=== PATIENT | female | born 1980 | race Caucasian/White ===

== ENCOUNTER 2020-06-14 07:19 | Outpatient (REF) | payer OTHER, SELFPAY ==
[2020-06-14 11:28] LABS: Hematocrit 38.8 % (37-47); Hemoglobin 12.4 g/dl (12.0-16.0); Mean Corpuscular Hemoglobin 28.2 pg (27.0-33.0); Mean Corpuscular Volume 88.2 fL (80-98); Mean Platelet Volume 10.7 fL (9.4-12.3); Platelet Count 326 X10*3/uL (160-400); Red Cell Distribution Width 14.6 % (11.0-16.0)
[2020-06-14 11:31] LABS: Glucose Urine UA NEG (NEG); Leukocyte Esterase Urine NEG (NEG); Nitrite Urine NEG (NEG); Specific Gravity - Urine >= 1.030 (1.005-1.025); Urine Blood 3+ (NEG); Urine Ketones NEG (NEG); Urine Protein NEG (NEG-TRACE)
[2020-06-14 11:33] LABS: Color Urine YELLOW
[2020-06-14 11:34] LABS: Appearance Urine CLOUDY
[2020-06-14 11:45] LABS: Amorphous Sediment Urine 2+ /LPF; Bacteria Urine 2+ /LPF; Squamous Epithelial Cell Urine 2+ /LPF
[2020-06-14 11:48] LABS: Alanine Aminotransferase 16 U/L (0-31); Alkaline Phosphatase 113 U/L (39-117); Anion Gap 12 (12-20); Aspartate Amino Transferase 14 U/L (5-31); Bilirubin Total 0.6 mg/dL (0.0-1.0); Blood Urea Nitrogen 12 mg/dL (9-16); Calcium 8.5 mg/dL (8.4-10.2); Carbon Dioxide 25 mmol/L (22-29); Chloride 106 mmol/L (96-108); Cholesterol 191 mg/dL; Estimated Glomerular Filt Rate > 60; Glucose Fasting 93 mg/dL (60-99); HDL Cholesterol 45 mg/dL; LDL Cholesterol Calculated 126 mg/dl; Potassium 4.1 mmol/l (3.3-5.1); Sodium 139 mmol/L (135-145); Total Protein 6.9 g/dL (6.5-8.0); Triglycerides 104 mg/dL
[2020-06-14 12:13] LABS: Thyroid Stimulating Hormone 2.02 mIU/mL (0.32-4.0)
== END 2020-06-14 07:20 | disposition home or self-care (01) ==
LOC: HO.HMGCLDS 07:19
PROVIDERS: PCP Internal Medicine; Visit Provider Internal Medicine
DX: Z00.00 Encounter for general adult medical examination without abnormal findings (principal); E66.9 Obesity, unspecified; M79.7 Fibromyalgia; E78.5 Hyperlipidemia, unspecified
CPT/HCPCS: 36415; 80053; 80061; 81001; 84443; 85027

== ENCOUNTER 2021-09-02 09:21 | Outpatient (REF) | payer OTHER, SELFPAY | END 2021-09-02 09:22 | disposition home or self-care (01) | LOC: HO.HMGCLDS 09:21 | PROVIDERS: Visit Provider Internal Medicine | DX: Z20.822 Contact with and (suspected) exposure to COVID-19 (principal) | CPT/HCPCS: C9803; U0003; U0005 ==

== ENCOUNTER → 2023-08-14 10:01 | Outpatient (BNVA) | payer SELFPAY | PROVIDERS: PCP Family Medicine; Visit Provider Internal Medicine | DX: Z02.1 Encounter for pre-employment examination (principal) ==

== ENCOUNTER 2023-10-01 08:29 | Outpatient (AMB) | payer SELFPAY ==
--- NOTE | 2023-10-01 08:37 | MHC.PC.OV ---
Vital Signs 10/01/23 08:41 Height 5 ft Weight 204 lb 6 oz BMI 39.9 BP 122/78 Blood Pressure Location Lt brachial Position Sitting Pulse 78 Pulse Source Pulse Oximeter Pulse Oximetry (%) 100 Oxygen Delivery Method Room Air Intake Visit Reasons: Est. Care/Stomach issues Intake Note: Pt is here today for stomach issues and knee problems. Allergies Benadryl Allergy (Unknown, Verified 10/01/23 08:52) angioedema, facial swelling From BENADRYL Allergy (Unknown, Uncoded 10/01/23 08:52) ITCHING ON FACE hard water and soap Allergy (Unknown, Uncoded 10/01/23 08:52) rash Medication List - Last Reconciled 10/01/23 by ALICIA Vail ketorolac 30 mg IM Q6-8H PRN syringe with needle As directed Tobacco use date assessed: 10/01/23 Dental Screening Dental Screen Date: 10/01/23 Did you have a dental visit in the last 12 months?: No Did you have a dental problem in the last 6 months where you did not have access to dental care?: No Was dental information given to patient?: No HPI HPI Comments History of Present Illness Details Patient is a 43-year-old female in today to establish care. She has a longstanding medical history in regard to achalasia and a sigmoid esophagus, she sees [facility]. She has chronic history of migraine, she has an established neurologist. She has fibromyalgia for whom she sees Rheumatology. Patient has a complaint of crepitus and cracking in the bilateral knees, yellow and thick toenail on her right great toe, and seasonal allergies. Patient states she noticed the cracking/ crepitus in her knees for several years however the problem has gotten worse. She denies pain, denies trauma to the area. Patient states she notices it most when she is walking up the stairs. Patient states she has a longstanding thickened and yellow toenail on her right great toe. Will refer to Podiatry. Patient also states she has intense seasonal allergies and would like to see an slide developer, will refer. [facility] Medical History (Updated 10/01/23 @ 10:46 by ALICIA Vail) Annual physical exam Normal Pap smear Hypermobile joint syndrome of multiple sites Obese Hyperlipemia Fibromyalgia Lumbar degenerative disc disease Achalasia Carpal tunnel syndrome Migraine headache Surgical History (Updated 10/01/23 @ 09:00 by ALICIA Vail) Hx of cholecystectomy History of appendectomy Family History Father No problems noted. Mother No problems noted. Social History Housing: House Patient Tobacco Use Status: Never used Tobacco e-Cigarette/Vaping Use: Never Used service: No Current occupational status: employed Cognitive needs: No Hearing needs: No Vision needs: Yes Questionnaire PHQ-9 Over the last 2 weeks, how often have you been bothered by any of the following problems? 1. Little interest or pleasure in doing things: several days 2. Feeling down, depressed, or hopeless: several days 3. Trouble falling or staying asleep, or sleeping too much: not at all 4. Feeling tired or having little energy: not at all 5. Poor appetite or overeating: not at all 6. Feeling bad about yourself - or that you are a failure or have let yourself or your family down: not at all 7. Trouble concentrating on things, such as reading the newspaper or watching television: not at all 8. Moving or speaking so slowly that other people could have noticed. Or the opposite - being so fidgety or restless that you have been moving around a lot more than usual: not at all 9. Thoughts that you would be better off or of hurting yourself in some way: not at all Total score: 2 Depression Screening Interpretation: Negative Depression Screening Done: Yes 80574 - PHQ-9 Billing: Yes Source: Developed by Drs. Diallo Zuleta, Sandra Arana, Henry Narayan and colleagues, with an educational jose from [employer]. Thrive Questionnaire Date Thrive assessed: 10/01/23 I am a: Patient What is your living situation today?: I have a steady place to live Within the past 12 months, did the food you bought not last and you didn't have the money to get more?: Never true Within the past 12 months, did you worry whether your food would run out before you got money to buy more?: Never true Do you have trouble paying for medicines?: No Do you have trouble getting transportation to medical appointments?: No Do you have trouble paying your heating and electricity bill?: No Do you have trouble taking care of your child, family member or friend?: No Do you have trouble with day-to-day activities such as bathing, preparing meals, shopping, managing finances, etc.?: No Are you currently unemployed and looking for a job?: No Are you interested in more education?: No Please select the resources that you would like help with: None Currently or been in a relationship where the following occur: no concerns reported THRIVE Score: 0 AUDIT C Alcohol Use Questionnaire (AUDIT-C) 1. How often do you have a drink containing alcohol?: Never 3. How often do you have six or more drinks on one occasion?: Never Total Score: 0 Score Reviewed/Action Taken: Yes LEEANNA-7 AMB Questionnaire LEEANNA-7 Date LEEANNA - 7 assessed: 10/01/23 Feeling nervous, anxious, or on edge: 1 = Several days Not being able to stop or control worryin = Several days Worrying too much about different things: 1 = Several days Trouble relaxin = Not at all Being so restless that it is hard to sit still: 0 = Not at all Becoming easily annoyed or irritable: 0 = Not at all Feeling afraid as if something awful might happen: 0 = Not at all Total LEEANNA-7 score (0-4 normal; 5-9 mild; 10-14 moderate; 15-21 severe): 3 Source: Developed by Drs. Diallo Zuleta, Sandra Arana, Henry Narayan and colleagues, with an educational jose from [employer]. LEEANNA-7 Assessment Billing LEEANNA-7 Assessment Tool: LEEANNA-7 Assessment 94277 Review of Systems Const Details: Constitutional : No Weight loss, No Fever, No Chills, No Fatigue, No Malaise ENT/Mouth : No sore throat, No Rhinorrhea, No ear fullness. Eyes: No Eye Pain, No Swelling, No Redness Cardiovascular : No Chest Pain, No SOB, No Dyspnea on Exertion, No Orthopnea, No Edema, No Palpitations Respiratory : No Cough, No Sputum, No Wheezing Gastrointestinal : No Nausea, No Vomiting, No Diarrhea, No Constipation, Admits occasional abdominal Pain, Admits occasional heartburn. Genitourinary : No Dysuria, No Urinary Frequency, No Hematuria, Musculoskeletal : No joint pain, Admits cracking and crepitus of bilateral knees. Skin : No Skin Lesions, No rash Neuro : No Weakness, No Numbness, No Dizziness, No Headache Psych : No Anxiety/Panic, No Depression Heme/Lymph: No Bruising, No Bleeding,No Lymphadenopathy Endocrine : No Polyuria, No Polydipsia All other systems reviewed and are negative Physical exam (Primary Care) Vital Signs: Last Vital Signs Pulse 78 10/01/23 08:41 BP 122/78 10/01/23 08:41 Pulse Ox 100 10/01/23 08:41 Oxygen Delivery Method Room Air 10/01/23 08:41 Care Plan Goal for BP management: Vital signs reviewed and stable BMI result Body Mass Index 39.9 Tobacco/Smoking Status: Tobacco use Status Tobacco use date assessed 10/01/23 10/01/23 08:43 Patient Tobacco Use Status Never used Tobacco 10/01/23 08:43 e-Cigarette/Vaping Use Never Used 10/01/23 08:43 Depression Screening Interpretation: Negative Currently or been in a relationship where the following occur: no concerns reported Const General: cooperative Nutritional Appearance: overweight Orientation/consciousness: patient oriented x3 Limitations: no limitations HENMT Head: Yes normal to inspection and Yes normocephalic Resp Auscultation: clear to auscultation bilaterally Cardio Rate: regular rate Rhythm: regular rhythm Heart sounds: S1 normal heart sound present and S2 normal heart sound present Peripheral pulses: Peripheral pulses 2+ throughout Neuro General: patient oriented x3 Extrem General: Yes normal to inspection and Yes full ROM Right lower extremity: knee (cracking/crepitus) Details: normal ROM; no deformity Left lower extremity: knee Details: normal ROM and crepitus Location: at the knee; no deformity Psych Thought content: Normal thought content present Insight: Good insight present (Psych) Judgement: Good judgement present (Psych) Assessment and Plan Assessment & Plan (1) Crepitus of both knee joints: Comment: Will order x-ray of bilateral knees. Will refer for to orthopedics. Code(s): M23.8X1 - Other internal derangements of right knee; M23.8X2 - Other internal derangements of left knee (2) Seasonal allergies: Comment: Patient would like referral to slide developer for assessment. Code(s): J30.2 - Other seasonal allergic rhinitis (3) Onychomycosis: Comment: Patient will get referral to Podiatry. Code(s): B35.1 - Tinea unguium Plan Follow-up for physical in 3 months Orders: Orders Comprehensive Met. Panel Today Z91.89 - Other specified personal risk factors, not elsewhere classified Complete Blood Count Auto Diff Today Z13.220 - Encounter for screening for lipoid disorders Lipid Panel Today Z13.220 - Encounter for screening for lipoid disorders Vitamin B6 Today Z13.21 - Encounter for screening for nutritional disorder Vitamin B12 Today Z13.21 - Encounter for screening for nutritional disorder XR knee RT 2V Today M23.8X1 - Other internal derangements of right knee, M23.8X2 - Other internal derangements of left knee Vitamin D 25-OH (D2 and D3) Today Z13.21 - Encounter for screening for nutritional disorder UA CC w/rflx Micro + Cult Today Z91.89 - Other specified personal risk factors, not elsewhere classified TSH reflex Free T4 Today Z13.29 - Encounter for screening for other suspected endocrine disorder XR knee LT 2V Today M23.8X1 - Other internal derangements of right knee, M23.8X2 - Other internal derangements of left knee Coding Level of Care Code Est Pt Level 3 (93292) Diagnoses Crepitus of both knee joints M23.8X1; M23.8X2 Seasonal allergies J30.2 Onychomycosis B35.1 Additional Codes LEEANNA-7 Assessment Billing - LEEANNA-7 Assessment Tool: LEEANNA-7 Assessment [id number] ([id number])
[2023-10-01 08:41] VITALS: BP 122/78; PULSE 78; O2SAT 100; BMI 39.9
== END 2023-10-01 11:02 | disposition home or self-care (01) ==
PROVIDERS: PCP Family Medicine; Visit Provider Nurse Practitioner Primary Care
DX: M23.8X1 Other internal derangements of right knee (principal); M23.8X2 Other internal derangements of left knee; J30.2 Other seasonal allergic rhinitis; B35.1 Tinea unguium
CPT/HCPCS: 99213

== ENCOUNTER 2023-10-01 10:13 | Outpatient (REF) | payer SELFPAY ==
--- NOTE | ~2023-10-01 | XR_ITS ---
EXAMINATION: XR KNEE, RIGHT CLINICAL INFORMATION: Internal derangement. COMPARISON: None available. TECHNIQUE: AP and lateral views of the right knee. FINDINGS: Bony alignment and mineralization are normal. The lateral, medial and patellofemoral joint space compartments are well-maintained. There is slight peripheral osteophyte formation of the lateral joint space compartment. No fracture, dislocation or joint effusion is seen. There is no foreign body. XR/XR knee RT 2V IMPRESSION: 1. No right knee fracture, dislocation joint effusion is seen. 2. There is minimal osteoarthritic change of the lateral joint space compartment of the right knee. EXAMINATION: XR KNEE, LEFT CLINICAL INFORMATION: Internal derangement. COMPARISON: None available. TECHNIQUE: Four views of the left knee. FINDINGS: Bony alignment and mineralization are normal. The lateral, medial and patellofemoral joint space compartments are well-maintained. There is slight peripheral osteophyte formation of the lateral joint space compartment. No fracture, dislocation or joint effusion is seen. There is no foreign body. IMPRESSION: 1. No left knee fracture, dislocation joint effusion is seen. 2. There is minimal osteoarthritic change of the lateral joint space compartment of the left knee.
--- NOTE | ~2023-10-01 | XR_ITS ---
EXAMINATION: XR KNEE, RIGHT CLINICAL INFORMATION: Internal derangement. COMPARISON: None available. TECHNIQUE: AP and lateral views of the right knee. FINDINGS: Bony alignment and mineralization are normal. The lateral, medial and patellofemoral joint space compartments are well-maintained. There is slight peripheral osteophyte formation of the lateral joint space compartment. No fracture, dislocation or joint effusion is seen. There is no foreign body. XR/XR knee LT 2V IMPRESSION: 1. No right knee fracture, dislocation joint effusion is seen. 2. There is minimal osteoarthritic change of the lateral joint space compartment of the right knee. EXAMINATION: XR KNEE, LEFT CLINICAL INFORMATION: Internal derangement. COMPARISON: None available. TECHNIQUE: Four views of the left knee. FINDINGS: Bony alignment and mineralization are normal. The lateral, medial and patellofemoral joint space compartments are well-maintained. There is slight peripheral osteophyte formation of the lateral joint space compartment. No fracture, dislocation or joint effusion is seen. There is no foreign body. IMPRESSION: 1. No left knee fracture, dislocation joint effusion is seen. 2. There is minimal osteoarthritic change of the lateral joint space compartment of the left knee.
[2023-10-01 13:12] LABS: MANUAL DIFF FLAG NO
[2023-10-01 13:23] LABS: Basophils Absolute Auto 0.1 X10*3/uL (0.0-0.2); Basophils Percent Auto 0.7 % (0-2); Eosinophils Absolute Auto 0.2 X10*3/uL (0.0-0.4); Eosinophils Percent Auto 2.4 % (0-4); Hematocrit 37.8 % (37.0-47.0); Hemoglobin 11.9 g/dl (12.0-16.0); Imm Gran Abs Auto 0.04 X10*3/uL (0.00-0.03); Imm Gran Pct Auto 0.4 % (0.0-0.4); Lymphocytes Percent Auto 30.8 % (20-40); Mean Corpuscular HGB Conc 31.5 g/dl (31.0-35.0); Mean Corpuscular Volume 82.7 fL (80.0-98.0); Mean Platelet Volume 10.2 fL (9.4-12.3); Monocytes Absolute Auto 0.7 X10*3/uL (0.1-1.2); Monocytes Percent Auto 7.2 % (2-11); Neutrophils Absolute Auto 5.6 x10*3/uL (2.0-8.3); Neutrophils Percent Auto 58.5 % (45-73); Platelet Count 408 X10*3/uL (160-400); Red Blood Count 4.57 X10*6/uL (4.20-5.50); Red Cell Distribution Width 16.4 % (11.0-16.0); White Blood Count 9.6 X10*3/uL (4.8-10.8)
[2023-10-01 13:40] LABS: Appearance Urine Turbid; Color Urine Yellow; Glucose Urine UA Negative (Negative); Leukocyte Esterase Urine Negative (Negative); Nitrite Urine Positive (Negative); Specific Gravity - Urine 1.025 (1.005-1.025); UMIC TRIGGER UACC YES; Urine Blood Moderate (2+) (Negative); Urine Ketones Negative (Negative); Urine Protein Negative (Neg-Trace)
[2023-10-01 13:50] LABS: Alanine Aminotransferase 13 U/L (0-31); Alkaline Phosphatase 111 U/L (39-117); Anion Gap 10 (12-20); Aspartate Amino Transferase 16 U/L (5-31); Bilirubin Total 0.4 mg/dL (0.0-1.0); Blood Urea Nitrogen 13 mg/dL (9-16); Calcium 9.2 mg/dL (8.4-10.2); Carbon Dioxide 28 mmol/L (22-29); Chloride 105 mmol/L (96-108); Cholesterol 185 mg/dL (<200); Estimated Glomerular Filt Rate > 60; Glucose Random 86 mg/dL (60-115); HDL Cholesterol 47 mg/dL (>40); LDL Cholesterol Calculated 116 mg/dL (<100); Potassium 3.6 mmol/L (3.3-5.1); Sodium 139 mmol/L (135-145); Total Protein 7.6 g/dL (6.5-8.0); Triglycerides 112 mg/dL (<150)
[2023-10-01 13:56] LABS: TSH reflex Free T4 1.07 uIU/mL (0.32-4.0)
[2023-10-01 14:00] LABS: Vitamin B12 278 pg/mL (200-900)
[2023-10-01 14:52] LABS: Bacteria Urine 1+ (None Seen); Hyaline Casts Urine 0-2 /LPF (0-2); RBC Urine 0-2 /HPF (0-2); Squamous Epithelial Cell Urine 0-2 /HPF (0-2); UACC Culture Trigger YES; WBC Urine 0-5 /HPF (0-5)
[2023-10-05 17:12] LABS: Vitamin D 25-OH, D2 <4 ng/mL; Vitamin D 25-OH, D3 14 ng/mL; Vitamin D 25-OH, Total 14 ng/mL (30-100)
== END 2023-10-01 10:14 | disposition home or self-care (01) ==
LOC: HO.HMGCX 10:13
PROVIDERS: PCP Nurse Practitioner Primary Care; Visit Provider Nurse Practitioner Primary Care
DX: Z13.220 Encounter for screening for lipoid disorders (principal); Z13.21 Encounter for screening for nutritional disorder; Z13.29 Encounter for screening for other suspected endocrine disorder; M23.8X1 Other internal derangements of right knee; M23.8X2 Other internal derangements of left knee; Z91.89 Other specified personal risk factors, not elsewhere classified; R82.90 Unspecified abnormal findings in urine
CPT/HCPCS: 36415; 73560; 80053; 80061; 81001; 82306; 82607; 84443; 85025; 87086; 87088; 87186

== ENCOUNTER 2023-10-02 09:42 | Outpatient (REF) | payer SELFPAY ==
[2023-10-06 16:08] LABS: Vitamin B6 5.2 ng/mL (2.1-21.7)
== END 2023-10-02 09:43 | disposition home or self-care (01) ==
LOC: HO.HMGCLDS 09:42
PROVIDERS: PCP Nurse Practitioner Primary Care; Visit Provider Nurse Practitioner Primary Care
DX: Z13.21 Encounter for screening for nutritional disorder (principal)
CPT/HCPCS: 36415; 84207

== ENCOUNTER 2023-11-16 17:20 | Outpatient (REF) | payer SELFPAY | END 2023-11-16 17:21 | disposition home or self-care (01) | LOC: HO.HOSX 17:20 | PROVIDERS: Visit Provider Physician Assistant | DX: Z13.89 Encounter for screening for other disorder (principal) ==

== ENCOUNTER 2024-12-15 09:29 | Outpatient (AMB) | payer OTHER, SELFPAY ==
[2024-12-15 09:39] VITALS: BP 116/78; PULSE 89; RESP 16; TEMP 37.4; O2SAT 99; BMI 46.8
--- NOTE | 2024-12-15 09:39 | MHC.PC.OV ---
Vital Signs 12/15/24 09:39 Height 5 ft Weight 239 lb 12.8 oz BMI 46.8 BP 116/78 Blood Pressure Location Lt brachial Position Sitting Respiration 16 Pulse 89 Pulse Source Pulse Oximeter Temp 99.3 F Temp Source Oral Pulse Oximetry (%) 99 Oxygen Delivery Method Room Air Intake Visit Reasons: establish care Intake Note: Patient is a new patient here to establish care. Transferring care from [facility] . Medical records have been requested and have been received. Educational Psychology Professor Required: No Accompanied by: Self / Same As Patient Allergies Benadryl Allergy (Unknown, Verified 12/15/24 10:00) angioedema, facial swelling From BENADRYL Allergy (Unknown, Uncoded 12/15/24 10:00) ITCHING ON FACE hard water and soap Allergy (Unknown, Uncoded 12/15/24 10:00) rash Medication List - Last Reconciled 12/15/24 by GAEL Frazier ketorolac 30 mg IM Q4-6H PRN syringe with needle As directed Tobacco use date assessed: 12/15/24 Dental Screening Dental Screen Date: 12/15/24 Did you have a dental visit in the last 12 months?: No Did you have a dental problem in the last 6 months where you did not have access to dental care?: No Was dental information given to patient?: Patient has dentist HPI establish care HPI Details The patient is a 44-year-old female here to transition care from our [place] office. She presenting with concerns related to her chronic conditions such as fibromyalgia and hypermobility syndrome. She reported an allergic reaction to diphenhydramine, characterized by exacerbation of skin symptoms when exposed to sunlight. The patient additionally has hyperthyroidism and elevated blood ammonia levels, which are managed with the assistance of a school plant consultant. Despite her high pain tolerance and hypermobility syndrome, the patient experiences chronic migraines associated with aura, necessitating self-administration of Toradol injections. Her past medical history is further marked by gastrointestinal conditions like esophageal atony and motility disorder, which have necessitated surgical interventions affecting her ribcage. The patient has a deficient esophageal function and 70% of her stomach is non-functioning, which affects her appetite post-surgery. While she has specialized follow-up for these issues, a comprehensive physical examination, mammogram, and colonoscopy are pending, as are specific gynecological screenings. [facility] Medical History (Updated 12/18/24 @ 11:06 by GAEL Frazier) Annual physical exam Normal Pap smear Hypermobile joint syndrome of multiple sites Obese Hyperlipemia Fibromyalgia Lumbar degenerative disc disease Achalasia Carpal tunnel syndrome Migraine headache Surgical History Hx of cosmetic surgery History of tonsillectomy and adenoidectomy Hx of section Hx of cholecystectomy History of appendectomy Family History Father No problems noted. Mother No problems noted. Daughter Short-term memory loss Learning disability Son Premature Son Learning disability Autism Social History Household Members: Family Housing: House Alcohol intake: never Patient Tobacco Use Status: Never used Tobacco e-Cigarette/Vaping Use: Never Used service: No Current occupational status: employed Cognitive needs: No Hearing needs: No Vision needs: Yes (Glasses) Questionnaire PHQ-9 Over the last 2 weeks, how often have you been bothered by any of the following problems? 1. Little interest or pleasure in doing things: not at all 2. Feeling down, depressed, or hopeless: not at all 3. Trouble falling or staying asleep, or sleeping too much: not at all 4. Feeling tired or having little energy: not at all 5. Poor appetite or overeating: not at all 6. Feeling bad about yourself - or that you are a failure or have let yourself or your family down: not at all 7. Trouble concentrating on things, such as reading the newspaper or watching television: not at all 8. Moving or speaking so slowly that other people could have noticed. Or the opposite - being so fidgety or restless that you have been moving around a lot more than usual: not at all 9. Thoughts that you would be better off or of hurting yourself in some way: not at all Total score: 0 Depression Screening Interpretation: Negative Depression Screening Done: Yes 51716 - PHQ-9 Billing: Yes Source: Developed by Drs. Diallo Zuleta, SandraHenry Olivia and colleagues, with an educational jose from [employer]. Thrive Questionnaire Date Thrive assessed: 12/15/24 I am a: Patient What is your living situation today?: I have a steady place to live Within the past 12 months, did the food you bought not last and you didn't have the money to get more?: Often true Within the past 12 months, did you worry whether your food would run out before you got money to buy more?: Never true Do you have trouble paying for medicines?: No Do you have trouble getting transportation to medical appointments?: No Do you have trouble paying your heating and electricity bill?: No Do you have trouble taking care of your child, family member or friend?: No Do you have trouble with day-to-day activities such as bathing, preparing meals, shopping, managing finances, etc.?: No Are you currently unemployed and looking for a job?: No Are you interested in more education?: No Please select the resources that you would like help with: None Currently or been in a relationship where the following occur: No concerns reported THRIVE Score: 1 AUDIT C Alcohol Use Questionnaire (AUDIT-C) 1. How often do you have a drink containing alcohol?: Never 3. How often do you have six or more drinks on one occasion?: Never Total Score: 0 Score Reviewed/Action Taken: No LEEANNA-7 AMB Questionnaire LEEANNA-7 Date LEEANNA - 7 assessed: 12/15/24 Feeling nervous, anxious, or on edge: 0 = Not at all Not being able to stop or control worryin = Not at all Worrying too much about different things: 0 = Not at all Trouble relaxin = Not at all Being so restless that it is hard to sit still: 0 = Not at all Becoming easily annoyed or irritable: 0 = Not at all Feeling afraid as if something awful might happen: 0 = Not at all Total LEEANNA-7 score (0-4 normal; 5-9 mild; 10-14 moderate; 15-21 severe): 0 Source: Developed by Drs. Diallo Zuleta, Henry Sanders and colleagues, with an educational jose from [employer]. LEEANNA-7 Assessment Billing LEEANNA-7 Assessment Tool: LEEANNA-7 Assessment 72963 Review of Systems Const Reports headache(s) (Migraines with aura) Eyes Denies loss of vision ENT Reports dysphagia (with solid foods), Denies vertigo, Denies dizziness, Reports headache(s) (Migraines with aura) and Denies sore throat Card Denies chest pain, Denies leg edema and Denies lightheadedness Resp Denies cough, Denies hemoptysis and Denies wheezing GI Denies abdominal pain, Denies melena, Denies constipation, Reports dysphagia (with solid foods), Reports heartburn (On and off depending on meals), Denies diarrhea and Denies vomiting Denies urinary frequency, Denies dysuria and Denies urinary urgency Musc Denies arthralgias, Denies joint swelling, Denies numbness, Reports stiffness (Both knees, on and off crepitus) and Denies tingling Neuro Denies Abnormal speech present, Denies behavioral changes, Denies vertigo, Denies dizziness, Reports headache(s) (Migraines with aura), Denies loss of vision, Denies memory loss, Denies numbness and Denies tingling Psych Denies anxiety, Denies behavioral changes, Denies depression, Denies memory loss and Denies panic attacks Ced/Lymph Denies easy bleeding and Denies easy bruising Aller/Immun Denies wheezing Physical exam (Primary Care) Vital Signs: Last Vital Signs Temp 99.3 F 12/15/24 09:39 Pulse 89 12/15/24 09:39 Resp 16 12/15/24 09:39 BP 116/78 12/15/24 09:39 Pulse Ox 99 12/15/24 09:39 Oxygen Delivery Method Room Air 12/15/24 09:39 BMI result Body Mass Index 46.8 Tobacco/Smoking Status: Tobacco use Status Tobacco use date assessed 12/15/24 12/15/24 09:59 Patient Tobacco Use Status Never used Tobacco 12/15/24 09:56 e-Cigarette/Vaping Use Never Used 12/15/24 09:56 PHQ-9: PHQ-9 Score PHQ-9: Total score 0 12/15/24 10:05 Depression Screening Interpretation: Negative Thrive Assessment: Date of Thrive Assessment Date Thrive assessed 12/15/24 12/15/24 09:59 Currently or been in a relationship where the following occur: No concerns reported Const General: healthy appearing, no acute distress, alert and awake Nutritional Appearance: well nourished Orientation/consciousness: oriented to person, oriented to place and oriented to time HENMT Ears: external ears normal General nose exam: Normal external nose present Eyes Conjunctivae: conjunctivae normal Sclerae: sclerae normal Pupils: Equal, round and reactive pupils present Neck Neck: Yes no lymphadenopathy and Yes no JVD Thyroid: Thyroid normal Carotids: no bruits Resp Effort & Inspection: normal respiratory effort and not tachypneic Auscultation: no crackles, no rales, no rhonchi and no wheezes Cardio Rate: regular rate Rhythm: regular rhythm Heart sounds: no murmurs and normal S1 and S2 GI Inspection: Yes scar Palpation (GI): Soft to palpation, nontender, no hepatomegaly and no splenomegaly Auscultation: normal bowel sounds General: Yes no CVA tenderness Back/Spine/Pelvis Back: no CVA tenderness Skin General skin exam: no rashes or lesions noted and dry skin Neuro General: oriented to person, oriented to place and oriented to time Cranial nerves: Yes Equal, round and reactive pupils present Speech: No Abnormal speech present Gait exam (Neuro): Normal gait present Motor exam (neuro): no tremor noted Extrem Right upper extremity: full ROM Left upper extremity: full ROM Right lower extremity: full ROM; no edema Left lower extremity: full ROM; no edema Psych Mental Status: mental status grossly normal Speech and movement: Normal speech and movement present Affect: normal affect Attitude: cooperative Thought process: Normal thought process present Coding Level of Care Code Est Pt Level 4 (92340) Diagnoses Encounter for screening mammogram for malignant neoplasm of breast Z12.31 Encounter for annual routine gynecological examination Z01.419 Achalasia K22.0 Fibromyalgia M79.7 Migraine with status migrainosus, not intractable, unspecified migraine type G43.901 Migraine type: unspecified Status migrainosus presence: with status migrainosus Intractability: not intractable Hypermobile joint syndrome of multiple sites M24.80 Additional Codes LEEANNA-7 Assessment Billing - LEEANNA-7 Assessment Tool: LEEANNA-7 Assessment 08427 ([id number]) PHQ-9 - 73988 - PHQ-9 Billing: Yes ([id number]) Time Spent (min) 43 Assessment & Plan Assessment & Plan (1) Encounter for screening mammogram for malignant neoplasm of breast: Code(s): Z12.31 - Encounter for screening mammogram for malignant neoplasm of breast Category: Medical (2) Encounter for annual routine gynecological examination: Code(s): Z01.419 - Encounter for gynecological examination (general) (routine) without abnormal findings Category: Medical (3) Achalasia: Comment: f/u Code(s): K22.0 - Achalasia of cardia Category: Medical (4) Fibromyalgia: Comment: f/u rheumatology [facility] Code(s): M79.7 - Fibromyalgia Category: Medical (5) Migraine headache: Comment: f/u Dr. Naik Code(s): G43.909 - Migraine, unspecified, not intractable, without status migrainosus Category: Medical Qualifiers: Migraine type: unspecified Status migrainosus presence: with status migrainosus Intractability: not intractable Qualified Code(s): G43.901 - Migraine, unspecified, not intractable, with status migrainosus (6) Hypermobile joint syndrome of multiple sites: Code(s): M24.80 - Other specific joint derangements of unspecified joint, not elsewhere classified Category: Medical Plan We discussed management of the patient's fibromyalgia and hypermobility syndrome, emphasizing intervention through self-administered Toradol injections. The patient was counselled to avoid sun exposure to prevent aggravation of photosensitivity. Her history of allergic reaction to diphenhydramine requires vigilance against similar compounds. Gastrointestinal conditions demand continuous follow-up with specialists, given significant gastrointestinal motility involvement, and potential surgical interventions that might be needed in [place]. Previous surgical sites and their impacts are noted, with planned reassessment later this year. The patient was advised regarding the significance of recommended medical screenings like mammograms and colonoscopies, especially considering her age and new guidelines for early detection. Vaccinations are updated except for influenza, with only one dose of Moderna COVID-19 recorded. Further gynecological evaluations, including Pap smears and mammography, were planned, for which we will provide appropriate referrals. Patient was informed and verbally consented to the use of an ambient scribe for clinic note documentation during this visit. Orders: Orders Complete Blood Count Auto Diff 12/17/24 G43.909 - Migraine, unspecified, not intractable, without status migrainosus, J30.2 - Other seasonal allergic rhinitis, M79.7 - Fibromyalgia, Z00.00 - Encounter for general adult medical examination without abnormal findings Comprehensive [place]. Panel Fast 12/17/24 G43.909 - Migraine, unspecified, not intractable, without status migrainosus, J30.2 - Other seasonal allergic rhinitis, M79.7 - Fibromyalgia, Z00.00 - Encounter for general adult medical examination without abnormal findings Vitamin D 25-OH Total 12/17/24 G43.909 - Migraine, unspecified, not intractable, without status migrainosus, J30.2 - Other seasonal allergic rhinitis, M79.7 - Fibromyalgia, Z00.00 - Encounter for general adult medical examination without abnormal findings TSH reflex Free T4 12/17/24 G43.909 - Migraine, unspecified, not intractable, without status migrainosus, J30.2 - Other seasonal allergic rhinitis, M79.7 - Fibromyalgia, Z00.00 - Encounter for general adult medical examination without abnormal findings Glucose Fasting 12/17/24 G43.909 - Migraine, unspecified, not intractable, without status migrainosus, J30.2 - Other seasonal allergic rhinitis, M79.7 - Fibromyalgia, Z00.00 - Encounter for general adult medical examination without abnormal findings UA CC w/rflx Micro + Cult 12/17/24 G43.909 - Migraine, unspecified, not intractable, without status migrainosus, J30.2 - Other seasonal allergic rhinitis, M79.7 - Fibromyalgia, Z00.00 - Encounter for general adult medical examination without abnormal findings Lipid Panel 12/17/24 G43.909 - Migraine, unspecified, not intractable, without status migrainosus, J30.2 - Other seasonal allergic rhinitis, M79.7 - Fibromyalgia, Z00.00 - Encounter for general adult medical examination without abnormal findings MM tomosynthesis screening BI Today Z12.31 - Encounter for screening mammogram for malignant neoplasm of breast Referrals DRAWING KILN OPERATOR Referral Z01.419 - Encounter for gynecological examination (general) (routine) without abnormal findings Patient Instructions: - Avoid sun exposure during peak hours to limit photosensitivity reactions. - Maintain regular follow-ups with specialists for comprehensive management of all chronic conditions. - Schedule a mammogram and Pap smear; follow referrals provided. - Attend gastroenterology follow-ups to monitor motility disorder and potential surgical needs. - Monitor any changes in symptoms and seek immediate care if conditions worsen. - Avoid known allergens, such as diphenhydramine, to prevent adverse reactions.
--- OUTSIDE RECORDS SUMMARY | 2024-12-15 10:50 | XMS_ITS ---
Author Organization [facility] Address [address] [place] [phone] Care Team Providers Care Applications Support Lead Name Role Phone Diallo Chavez Primary Care Provider REASON FOR VISIT Patient presents today for an office visit f/u for achalasia,IBS,GERD Encounters Encounter Location Date Provider Diagnosis [facility] [address] [place] [phone] 01/07/2024 Diallo Chavez Plan Of Treatment No Information Progress Notes * PERNELL SERRANOGOJPINEDOB: 1980 (44 yo F)Acc No.[id number]:01/07/2024 Progress Notes Patient:?PERNELL SERRANOGOROSEANNA Provider:?Diallo Chavez MD :1980???Age:43 Y???Sex:Female D ate:01/07/2024 Address:[address] [place], [place] [id number] Subjective: * Chief Complaints: * ???1. Patient presents today for an office visit f/u for achalasia,IBS,GERD. * Medical History:? Objective: * Vitals:? Assessment: Plan: * Treatment: * * The named appointment provid er may or may not be the originator of this progress note, and it is not deemed complete until electronically signed by the appointment provider. Sign off status: Pending * Provider:?Diallo Chavez MD Date:? 024 Generated for Sree sheridan/Olga/eTransmitting on:?12/15/2024 10:50 AM EDT
--- OUTSIDE RECORDS SUMMARY | 2024-12-15 10:51 | XMS_ITS ---
Author Organization [facility] Address [address] [place] [phone] Care Team Providers Care Color Repairer Name Role Phone Diallo Chavez Primary Care Provider REASON FOR VISIT omeprazole refill Medications Medication SIG (Take, Route, Fr equency, Duration) Notes Start Date End Date Status Omeprazole 20 MG 1 Orally Every morni ng for 30 day(s) 09/08/2023 Active Encounters Encounter Location Date Provider Diagnosis [facility] [address] [place] [phone] 09/08/2023 Diallo Chavez Plan Of Treatment Medication Medication Name Sig Start Date Stop Date Notes Omeprazole 20 MG 1 Orally Every morning for 30 day(s) 05/2024 Progress Notes * JP LARRYINEDOB: 1980 (43 yo F)Acc No.[id number]:09/08/2023 Patient:?ROSEANNA LARRY :1980???Age:43 Y???Sex:Female Address:[address] [place] [id number] * Refills? Start Omeprazole Capsule Delayed Release, 20 MG, Orally, 30, 1, Every morning, 30 day(s), Refills=11 * true * Date:? Generated for Sree sheridan/Olga/eTransmitting on:?12/15/2024 10:50 AM EDT
--- OUTSIDE RECORDS SUMMARY | 2024-12-15 10:51 | XMS_ITS | Patient Health Record ---
Author Organization [facility] Address [address] [place] [phone] Care Team Providers Care Skin Installer Name Role Phone Diallo Chavez Primary Care Provider Allergies Allergen (clinical drug ingredient) Drug/Non Drug Allergy documented on EMR Reaction Allergy Type Onset Date Status diphenhydramine benadryl (uncoded) Unknown Allergy Active Reason For Referral No Information Medications Medication SIG (Take, Route, Frequency, Duration) Notes Start Date End Date Status Promethazine HCl Act juventino Hyoscyamine Sulfate 0.125 MG 1-2 Sublingual every 4 hours as needed for abdominal pain/cramps for 30 days IBS 04/10/2016 Active Omeprazole 20 MG Open 1 capsule and put in applesauce Orally Once a day for 30 day(s) 12/06/2020 Active Omeprazole 2 MG/ML 10 ml Orally Once a day for 30 day(s) 11/27/2020 Not-Taking Naratriptan HCl Migraines Acti ve Ketorolac Tromethamine 30 MG/ML (IM) as directed Intramuscular PRN pain Fibromyalgia Active Omeprazole 20 MG 1 Orally Every morning for 30 day(s) 09/08/2023 Active Imodium A-D 2 MG 1 or 2 tablets Orall y Take before each meal three times a day to prevent abdominal cramps and diarrhea for 30 days 04/30/2022 Active Prevacid SoluTab 30 MG 1 tablet dissolved in mouth Orally Once a day for 30 day(s) 12/04/2020 Not-Taking Hyoscyamine Sulfate 0.125 MG 1 or 2 tablet on the tongue and allow to dissolve Orally Before every meal three times a day to prevent abdominal cramps and diarrhea for 30 days 04/30/2022 Active Immunizations Vaccine Route Administration Date Status Comme nts Influenza Unknown 04/30/2022 Administered Influenza Unknown 05/30/2020 Refused Problems Problem Type SNOMED Code ICD Code Onset Dates Problem Status W/U Status Risk Notes Problem [id number] Abdominal bloating (R14.0) Active confirmed Problem 055744198 Generalized abdominal pain (R10.84) Active confirmed Problem Dysphagia (91991043) Dysphagia (R13.10) Active confirmed Problem Irritable bowel syndrome (52764358) IBS (irritable bowel syndrome) (K58.9) Active confirmed Problem 20603431 Achalasia (K22.0) Active confirmed Problem Gastroesophageal reflux disease (985994656) GERD (gastroesophag eal reflux disease) (K21.9) Active confirmed Encounters Encounter Location Date Provider Diagnosis [facility] [address] [place] [address] 01/07/2024 Diallo Chavez Plan Of Treatment No Information Medical (General) History Medical History History ICD Code Achalasia treated with a loli gical Heller myotomy in [place] in 2003--last EGD was in 08/2010-no retained food nor obstruction--saw Dr. Rekha Martinez from Thoracic surgery in 2010-did not feel that surgery was needed at that time--saw Dr. Katz at [facility] in 03/2014-had a Barium swallow and esophageal motility study--no surgery recommended. She did followup with Dr. Katz and Dr. Lambert at [facility] in 2014 but did not have any surgery nor POEM procedure done. We are trying to get her an appointment to see Dr. Qiu at [facility] for spring. She did see Dr. Qiu in 11/2015--had a Barium swallow and CT scan--he needs to do an EGD and then decide about any possible treatment for the Achalasia. She has been followed by Dr. Qiu, Dr. Mccray(Lapaoscopic surgeon) and Dr. Kent(Bariatric surgeon) at [facility]--going back there in 07/2017 for F/U and to try to set up a POEM procedure. She reports an attempted EGD with POEM by Dr. Mccray in spring---they were unable to do the POEM due to difficulty with the esophageal anatomy. Dr. Mccray has recommended an esophagectomy at some point. After 2018 no other intervention due to problems with her insurance. She has been seeing Dr. Blevins at [facility] since 2019 Headaches Denies NM,DM,CVA,Lung disease,renal dise ase Vitamin D deficiency Fibromyalgia/Hypermobility of the bones Regarding her achalasia, she has most recently been followed by Dr. Blevins at [facility] since May of 2020--she has undergone an upper endoscopy with a 20 mm Savory dilation by Dr. Blevins, as well as a barium swallow--- the main issue with José Antonios swallowing seems to be related to the poorly functioning and tortuous lower esophagus, as opposed to the lower esophageal sphincter--Dr. Blevins seems to think that the only real helpful surgery here could be potential esophagectomy with what I presume would be either a gastric pull-through anastomosis or colonic interposition. However, either way Sherie is felt to be a prohibitive operative risk due to her significant morbid obesity and the plan is to proceed conservatively at this time based on Dr. Blevins's office notes IBS Surgical History Surgery Date(Month/Year) Heller myotomy as above--2004 in [place] [facility] in 10/[address] Barnes Appendectomy 02/05/2015--Dr. Aguilar at [facility]
== END 2024-12-15 10:25 | disposition home or self-care (01) ==
DX: Z12.31 Encounter for screening mammogram for malignant neoplasm of breast (principal); Z01.419 Encounter for gynecological examination (general) (routine) without abnormal findings; K22.0 Achalasia of cardia; M79.7 Fibromyalgia; G43.901 Migraine, unspecified, not intractable, with status migrainosus; M24.80 Other specific joint derangements of unspecified joint, not elsewhere classified

== ENCOUNTER → 2024-12-15 09:29 | Outpatient (BNVA) | payer OTHER, SELFPAY | DX: K22.0 Achalasia of cardia (principal); M79.7 Fibromyalgia; G43.901 Migraine, unspecified, not intractable, with status migrainosus; M24.80 Other specific joint derangements of unspecified joint, not elsewhere classified | CPT/HCPCS: 96127; 99212 ==

== ENCOUNTER 2024-12-17 08:13 | Outpatient (REF) | payer OTHER, SELFPAY ==
--- OUTSIDE RECORDS SUMMARY | 2024-12-17 08:16 | XMS_ITS ---
Author Organization [facility] Address [address] [place] [phone] Care Team Providers Care Step Down Specialist Name Role Phone Diallo Chavez Primary Care Provider REASON FOR VISIT Pt no show Encounters Encounter Location Date Provider Diagnosis [facility] [address] [place] [phone] 01/07/2024 Diallo Chavez Plan Of Treatment No Information Progress Notes * JP LARRYINEDOB: 1980 (43 yo F)Acc No.[id number]:01/07/2024 Patient:?ROSEANNA LARRY :1980???Age:43 Y???Sex:Female Address:[address] [place] [phone] * true * Date:? Generated for Megani fatimah/Olga/eTransmitting on:?12/17/2024 08:16 AM EDT
--- OUTSIDE RECORDS SUMMARY | 2024-12-17 08:16 | XMS_ITS ---
Author Organization [facility] Address [address] [place] [phone] Care Team Providers Care Mushroom Laborer Name Role Phone Diallo Chavez Primary Care Provider [phone] REASON FOR VISIT omeprazole refill Medications Medication SIG (Take, Route, Fr equency, Duration) Notes Start Date End Date Status Omeprazole 20 MG 1 Orally Every morni ng for 30 day(s) 09/08/2023 Active Encounters Encounter Location Date Provider Diagnosis [facility] [address] [place] [phone] 09/08/2023 Diallo Chavez Plan Of Treatment Medication Medication Name Sig Start Date Stop Date Notes Omeprazole 20 MG 1 Orally Every morning for 30 day(s) 05/2024 Progress Notes * JP LARRYINEDOB: 1980 (43 yo F)Acc No.[id number]:09/08/2023 Patient:?ROSEANNA LARRY :1980???Age:43 Y???Sex:Female Address:[address] [place] [address] * Refills? Start Omeprazole Capsule Delayed Release, 20 MG, Orally, 30, 1, Every morning, 30 day(s), Refills=11 * true * Date:? Generated for Sree sheridan/Olga/eTransmitting on:?12/17/2024 08:16 AM EDT
--- OUTSIDE RECORDS SUMMARY | 2024-12-17 08:16 | XMS_ITS ---
Author Organization [facility] Address [address] [place] [phone] Care Team Providers Care Grounds Caretaker Name Role Phone Diallo Chavez Primary Care Provider [phone] REASON FOR VISIT Patient presents today for an office visit f/u for achalasia,IBS,GERD Encounters Encounter Location Date Provider Diagnosis [facility] [address] [place] [phone] 01/07/2024 Diallo Chavez Plan Of Treatment No Information Progress Notes * PERNELL SERRANOGOJPINEDOB: 1980 (44 yo F)Acc No.[id number]:01/07/2024 Progress Notes Patient:?PERNELL SERRANOGOROSEANNA Provider:?Diallo Chavez MD :1980???Age:43 Y???Sex:Female D ate:01/07/2024 Address:[address] [place], [place] [phone] Subjective: * Chief Complaints: * ???1. Patient [...] Provider:?Diallo Chavez MD Date:? 024 Generated for Megani fatimah/Olga/eTransmitting on:?12/17/2024 08:15 AM EDT
--- OUTSIDE RECORDS SUMMARY | 2024-12-17 08:17 | XMS_ITS | Patient Health Record ---
Author Organization [facility] Address [address] [place] [address] Care Team Providers Care Cae Engineer Name Role Phone Diallo Chavez Primary Care Provider [phone] Allergies Allergen (clinical drug ingredient) Drug/Non Drug [...] Problem Status W/U Status Risk Notes Problem 454952617 Abdominal bloating (R14.0) Active confirmed Problem 737580402 Generalized abdominal pain (R10.84) Active confirmed Problem Dysphagia (28091841) Dysphagia (R13.10) Active confirmed Problem Irritable bowel syndrome (59269863) IBS (irritable bowel syndrome) (K58.9) Active confirmed Problem 97418358 Achalasia (K22.0) Active confirmed Problem Gastroesophageal reflux disease (741321048) GERD (gastroesophag eal reflux disease) (K21.9) Active confirmed Encounters Encounter Location Date Provider Diagnosis [facility] [address] [place] [address] 01/07/2024 Diallo Chavez Plan Of Treatment No Information Medical (General) History Medical History History ICD Code Achalasia treated with a loli gical Heller myotomy in [place] in 2003--last EGD was in 08/2010-no retained food nor obstruction--saw Dr. Rekha Martinez from Thoracic surgery in 2010-did not feel that surgery was needed at that time--saw Dr. Katz at [facility] in 03/2014-had a Barium swallow and esophageal motility study--no surgery recommended. She did followup with Dr. Katz and Dr. Lambert at [facility] in 2014 but did not have any surgery nor POEM procedure done. We are trying to get her an appointment to see Dr. Qiu at [facility] for spring. She did see Dr. Qiu in 11/2015--had a Barium swallow and CT scan--he needs to do an EGD and then decide about any possible treatment for the Achalasia. She has been followed by Dr. Qiu, Dr. Mccray(Lapaoscopic surgeon) and Dr. Kent(Bariatric surgeon) at [facility]--going back there in 07/2017 for F/U and [...] She has been seeing Dr. Blevins at [facility] since 2019 Headaches Denies [place],DM,CVA,Lung disease,renal dise ase Vitamin D deficiency Fibromyalgia/Hypermobility of the bones Regarding her achalasia, she has most recently been followed by Dr. Blevins at [facility] Department since May of 2020--she [...] Surgery Date(Month/Year) Heller myotomy as above--2004 in [place] [facility] in 10/[address] Barnes Appendectomy 02/05/2015--Dr. Aguilar at [facility]
[2024-12-17 08:33] LABS: MANUAL DIFF FLAG NO
[2024-12-17 09:08] LABS: Basophils Absolute Auto 0.1 X10*3/uL (0.0-0.2); Basophils Percent Auto 0.9 % (0-2); Eosinophils Absolute Auto 0.4 X10*3/uL (0.0-0.4); Eosinophils Percent Auto 5.1 % (0-4); Hematocrit 35.7 % (37.0-47.0); Hemoglobin 10.7 g/dl (12.0-16.0); Imm Gran Abs Auto 0.04 X10*3/uL (0.00-0.03); Imm Gran Pct Auto 0.5 % (0.0-0.4); Lymphocytes Absolute Auto 2.6 X10*3/uL (1.2-4.9); Lymphocytes Percent Auto 31.6 % (20-40); Mean Corpuscular Hemoglobin 23.1 pg (27.0-33.0); Mean Corpuscular Volume 76.9 fL (80.0-98.0); Mean Platelet Volume 9.8 fL (9.4-12.3); Monocytes Absolute Auto 0.6 X10*3/uL (0.1-1.2); Monocytes Percent Auto 7.8 % (2-11); Neutrophils Absolute Auto 4.4 x10*3/uL (2.0-8.3); Neutrophils Percent Auto 54.1 % (45-73); Platelet Count 364 X10*3/uL (160-400); Red Blood Count 4.64 X10*6/uL (4.20-5.50); Red Cell Distribution Width 19.5 % (11.0-16.0); White Blood Count 8.1 X10*3/uL (4.8-10.8)
[2024-12-17 09:17] LABS: Appearance Urine Cloudy; Color Urine Yellow; Glucose Urine UA Negative (Negative); Leukocyte Esterase Urine Small (1+) (Negative); Nitrite Urine Positive (Negative); PH 5.5 (5.0-9.0); Specific Gravity - Urine 1.025 (1.005-1.025); UMIC TRIGGER UACC YES; Urine Blood Moderate (2+) (Negative); Urine Ketones Trace mg/dL (Negative); Urine Protein Negative (Neg-Trace)
[2024-12-17 09:30] LABS: Bacteria Urine 4+ (None Seen); Hyaline Casts Urine 0-2 /LPF (0-2); RBC Urine 0-2 /HPF (0-2); UACC Culture Trigger YES; WBC Urine 21-50 /HPF (0-5)
[2024-12-17 10:02] LABS: Alanine Aminotransferase 16 U/L (0-31); Albumin Level 3.9 g/dL (3.5-5.0); Alkaline Phosphatase 99 U/L (39-117); Aspartate Amino Transferase 21 U/L (5-31); Bilirubin Total 0.7 mg/dL (0.0-1.0); Blood Urea Nitrogen 13 mg/dL (9-16); Calcium 9.4 mg/dL (8.4-10.2); Cholesterol 186 mg/dL (<200); Estimated Glomerular Filt Rate > 60; Glucose Fasting 89 mg/dL (60-99); HDL Cholesterol 46 mg/dL (>40); LDL Cholesterol Calculated 117 mg/dL (<100); Total Protein 7.2 g/dL (6.5-8.0); Triglycerides 116 mg/dL (<150)
[2024-12-17 10:13] LABS: Anion Gap 15 (12-20); Carbon Dioxide 23 mmol/L (22-29); Chloride 107 mmol/L (96-108); Potassium 3.8 mmol/L (3.3-5.1); Sodium 141 mmol/L (135-145); TSH reflex Free T4 2.58 uIU/mL (0.32-4.0)
== END 2024-12-17 08:14 | disposition home or self-care (01) ==
LOC: HO.LAB 08:13
DX: Z00.00 Encounter for general adult medical examination without abnormal findings (principal); G43.909 Migraine, unspecified, not intractable, without status migrainosus; M79.7 Fibromyalgia; J30.2 Other seasonal allergic rhinitis
CPT/HCPCS: 36415; 80053; 80061; 81001; 82306; 84443; 85025; 87086; 87088; 87186

== ENCOUNTER 2024-12-22 09:37 | Outpatient (REF) | payer OTHER, SELFPAY ==
--- OUTSIDE RECORDS SUMMARY | 2024-12-22 10:40 | XMS_ITS | Patient Health Record ---
Author Organization [facility] Address [address] [place] [phone] Care Team Providers Care Licensed Nuclear Control Room Operator Name Role Phone Diallo Chavez Primary Care Provider [phone] Allergies Allergen (clinical drug ingredient) Drug/Non Drug [...] Problem Status W/U Status Risk Notes Problem 759801288 Abdominal bloating (R14.0) Active confirmed Problem 415902006 Generalized abdominal pain (R10.84) Active confirmed Problem Dysphagia (26677308) Dysphagia (R13.10) Active confirmed Problem Irritable bowel syndrome (79155326) IBS (irritable bowel syndrome) (K58.9) Active confirmed Problem 65700152 Achalasia (K22.0) Active confirmed Problem Gastroesophageal reflux disease (607315515) GERD (gastroesophag eal reflux disease) (K21.9) Active confirmed Encounters Encounter Location Date Provider Diagnosis [facility] [address] [place] [address] 01/07/2024 Diallo Chavez Plan Of Treatment No Information Medical (General) History Medical History History ICD Code Achalasia treated with a loli gical Heller myotomy in [place] in 2003--last EGD was in 08/2010-no retained food nor obstruction--saw Dr. Rekha Martinez from Thoracic surgery in 2010-did not feel that surgery was needed at that time--saw Dr. Katz at [facility] in 03/2014-had a Barium swallow and esophageal motility study--no surgery recommended. She did followup with Dr. Katz and Dr. Lambert at [facility] in 2014 but did not have any surgery nor POEM procedure done. We are trying to get her an appointment to see Dr. Qiu at [facility] for spring. She did see Dr. Qiu in 11/2015--had a Barium swallow and CT scan--he needs to do an EGD and then decide about any possible treatment for the Achalasia. She has been followed by Dr. Qiu, Dr. Mccray(Lapaoscopic surgeon) and Dr. Kent(Bariatric surgeon) at [facility]--going back there in 07/2017 for F/U and [...] She has been seeing Dr. Blevins at [facility] since 2019 Headaches Denies [place],DM,CVA,Lung disease,renal dise ase Vitamin D deficiency Fibromyalgia/Hypermobility of the bones Regarding her achalasia, she has most recently been followed by Dr. Blevins at [facility] Department since May [...] Surgery Date(Month/Year) Heller myotomy as above--2004 in [place] [facility] in 10/[address] Barnes Appendectomy 02/05/2015--Dr. Aguilar at [facility]
--- OUTSIDE RECORDS SUMMARY | 2024-12-22 10:40 | XMS_ITS ---
Author Organization [facility] Address [address] [place] [phone] Care Team Providers Care Gyro Compass Tester Name Role Phone Diallo Chavez Primary Care Provider REASON FOR VISIT omeprazole refill Medications Medication SIG (Take, Route, Fr equency, Duration) Notes Start Date End Date Status Omeprazole 20 MG 1 Orally Every morni ng for 30 day(s) 09/08/2023 Active Encounters Encounter Location Date Provider Diagnosis [facility] [address] [place] [phone] 09/08/2023 Diallo Chavez Plan Of Treatment Medication Medication Name Sig Start Date Stop Date Notes Omeprazole 20 MG 1 Orally Every morning for 30 day(s) 05/2024 Progress Notes * JP LARRYINEDOB: 1980 (43 yo F)Acc No.[id number]:09/08/2023 Patient:?ROSEANNA LARRY :1980???Age:43 Y???Sex:Female Address:[address] [place] [address] * Refills? Start Omeprazole Capsule Delayed Release, 20 MG, Orally, 30, 1, Every morning, 30 day(s), Refills=11 * true * Date:? Generated for Sree sheridan/Olga/eTransmitting on:?12/22/2024 10:40 AM EDT
--- OUTSIDE RECORDS SUMMARY | 2024-12-22 10:40 | XMS_ITS ---
Author Organization [facility] Address [address] [place] [phone] Care Team Providers Care Manager Human Resources Name Role Phone Diallo Chavez Primary Care Provider [phone] REASON FOR VISIT Pt no show Encounters Encounter Location Date Provider Diagnosis [facility] [address] [place] [phone] 01/07/2024 Diallo Chavez Plan Of Treatment No Information Progress Notes * JP LARRYINEDOB: 1980 (43 yo F)Acc No.[id number]:01/07/2024 Patient:?ROSEANNA LARRY :1980???Age:43 Y???Sex:Female Address:[address] [place] [address] * true * Date:? Generated for Megani fatimah/Olga/eTransmitting on:?12/22/2024 10:40 AM EDT
--- OUTSIDE RECORDS SUMMARY | 2024-12-22 10:40 | XMS_ITS ---
Author Organization [facility] Address [address] [place] [phone] Care Team Providers Care Coffee Attendant Name Role Phone Diallo Chavez Primary Care Provider REASON FOR VISIT Patient presents today for an office visit f/u for achalasia,IBS,GERD Encounters Encounter Location Date Provider Diagnosis [facility] [address] [place] [phone] 01/07/2024 Diallo Chavez Plan Of Treatment No Information Progress Notes * PERNELL SERRANOGOJPINEDOB: 1980 (44 yo F)Acc No.[id number]:01/07/2024 Progress Notes Patient:?PERNELL SERRANOGOROSEANNA Provider:?Diallo Chavez MD :1980???Age:43 Y???Sex:Female D ate:01/07/2024 Address:[address] [place], [place] [phone] Subjective: * Chief Complaints: * ???1. Patient [...] MD Date:? 024 Generated for Megani fatimah/Olga/eTransmitting on:?12/22/2024 10:40 AM EDT
[2024-12-22 11:15] LABS: Glucose Fasting 80 mg/dL (60-99); Iron 34 mcg/dL (30-160); Percent Iron Saturation 9 % (15-50); Total Iron Binding Capacity 359 mcg/dL (228-428); Unsaturated Iron Binding 325 ug/dL
[2024-12-22 11:57] LABS: Appearance Urine Clear; Color Urine Yellow; Glucose Urine UA Negative (Negative); Leukocyte Esterase Urine Negative (Negative); Nitrite Urine Negative (Negative); PH 5.5 (5.0-9.0); Specific Gravity - Urine 1.015 (1.005-1.025); Urine Blood Negative (Negative); Urine Ketones Negative (Negative); Urine Protein Negative (Neg-Trace)
== END 2024-12-22 09:38 | disposition home or self-care (01) ==
LOC: HO.LAB 09:37
DX: Z00.00 Encounter for general adult medical examination without abnormal findings (principal); D64.9 Anemia, unspecified; G43.909 Migraine, unspecified, not intractable, without status migrainosus; M79.7 Fibromyalgia; J30.2 Other seasonal allergic rhinitis
CPT/HCPCS: 36415; 81003; 82947; 83540

== ENCOUNTER 2025-01-03 16:02 | Outpatient (AMB) | payer OTHER, SELFPAY ==
[2025-01-03 16:12] VITALS: BP 122/70; PULSE 70; RESP 18; TEMP 36.9; O2SAT 99; BMI 47.1
--- NOTE | 2025-01-03 16:12 | A.OFFPC_ITS ---
Vital Signs 01/03/25 16:12 Height 5 ft Weight 241 lb 6.4 oz BMI 47.1 BP 122/70 Blood Pressure Location Lt brachial Position Sitting Respiration 18 Pulse 70 Pulse Source Pulse Oximeter Temp 98.4 F Temp Source Oral Pulse Oximetry (%) 99 Oxygen Delivery Method Room Air Intake Visit Reasons: water retention in her legs Project Manager Required: No Accompanied by: Self / Same As Patient Allergies Benadryl Allergy (Unknown, Verified 01/03/25 16:49) angioedema, facial swelling From BENADRYL Allergy (Unknown, Uncoded 01/03/25 16:49) ITCHING ON FACE hard water and soap Allergy (Unknown, Uncoded 01/03/25 16:49) rash Medication List - Last Reconciled 01/03/25 by GAEL Frazier ketorolac 30 mg IM Q4-6H PRN syringe with needle As directed Tobacco use date assessed: 01/03/25 Dental Screening Dental Screen Date: 01/03/25 Did you have a dental visit in the last 12 months?: No Did you have a dental problem in the last 6 months where you did not have access to dental care?: No Was dental information given to patient?: Patient has dentist HPI water retention in her legs HPI Details The patient is a 44-year-old female presenting with edema and joint pain. She describes significant swelling in her legs that worsens with high temperatures, such as during travels to [place]. The onset of swelling dated back approximately 17 years ago when she was prescribed diuretics, but no further treatments have been pursued since. She reports knee discomfort characterized by a grinding sensation, particularly in the left knee, which has persisted over time. This discomfort coincides with a history of fractures in her fingers and elbow. The patient acknowledges longstanding struggles with glycemic irregularities, noting episodic hyperglycemia but without definitive diagnosis of diabetes. Liver and kidney functions have been under observation for related enzymatic changes, and currently stabilized. Complain of left heel pain, hard to walk at times, the pain could be sharp intermittently. left heel pain, hard to walk at times, sharp pain. Swelling in both legs spironolactone 25 mg daily for 4 weeks. [facility] Medical History (Updated 01/03/25 @ 17:16 by GAEL Frazeir) Annual physical exam Normal Pap smear Hypermobile joint syndrome of multiple sites Obese Hyperlipemia Fibromyalgia Lumbar degenerative disc disease Achalasia Carpal tunnel syndrome Migraine headache Surgical History Hx of cosmetic surgery History of tonsillectomy and adenoidectomy Hx of section Hx of cholecystectomy History of appendectomy Family History Father No problems noted. Mother No problems noted. Daughter Short-term memory loss Learning disability Son Premature Son Learning disability Autism Social History Household Members: Family Housing: House Alcohol intake: never Patient Tobacco Use Status: Never used Tobacco e-Cigarette/Vaping Use: Never Used service: No Current occupational status: employed Cognitive needs: No Hearing needs: No Vision needs: Yes (Glasses) Questionnaire Thrive Questionnaire Date Thrive assessed: 01/03/25 I am a: Patient What is your living situation today?: I have a steady place to live Within the past 12 months, did the food you bought not last and you didn't have the money to get more?: Often true Within the past 12 months, did you worry whether your food would run out before you got money to buy more?: Never true Do you have trouble paying for medicines?: No Do you have trouble getting transportation to medical appointments?: No Do you have trouble paying your heating and electricity bill?: No Do you have trouble taking care of your child, family member or friend?: No Do you have trouble with day-to-day activities such as bathing, preparing meals, shopping, managing finances, etc.?: No Are you currently unemployed and looking for a job?: No Are you interested in more education?: No Please select the resources that you would like help with: None Currently or been in a relationship where the following occur: No concerns reported THRIVE Score: 1 AUDIT C Alcohol Use Questionnaire (AUDIT-C) 1. How often do you have a drink containing alcohol?: Never Total Score: 0 Score Reviewed/Action Taken: No LEEANNA-7 AMB Questionnaire LEEANNA-7 Date LEEANNA - 7 assessed: 12/15/24 Source: Developed by Drs. Diallo Zuleta, Sandra Arana, Henry Narayan and colleagues, with an educational jose from [employer]. Review of Systems Const Denies headache(s) Eyes Denies loss of vision ENT Reports vertigo, Denies headache(s) and Denies sore throat Card Denies chest pain, Reports pedal edema, Reports edema, Denies leg edema and Denies lightheadedness Resp Denies cough, Denies hemoptysis and Denies wheezing Musc Reports arthralgias, Reports joint swelling and Reports other (left heel pain) Neuro Denies Abnormal speech present, Reports vertigo, Denies headache(s) and Denies loss of vision Ced/Lymph Denies easy bleeding and Denies easy bruising Aller/Immun Denies wheezing Physical exam (Primary Care) Vital Signs: Last Vital Signs Temp 98.4 F 01/03/25 16:12 Pulse 70 01/03/25 16:12 Resp 18 01/03/25 16:12 BP 122/70 01/03/25 16:12 Pulse Ox 99 01/03/25 16:12 Oxygen Delivery Method Room Air 01/03/25 16:12 BMI result Body Mass Index 47.1 Tobacco/Smoking Status: Tobacco use Status Tobacco use date assessed 01/03/25 01/03/25 16:28 Patient Tobacco Use Status Never used Tobacco 01/03/25 16:28 e-Cigarette/Vaping Use Never Used 01/03/25 16:28 Thrive Assessment: Date of Thrive Assessment Date Thrive assessed 01/03/25 01/03/25 16:28 Currently or been in a relationship where the following occur: No concerns reported Const General: healthy appearing, no acute distress, alert and awake Nutritional Appearance: well nourished Orientation/consciousness: oriented to person, oriented to place and oriented to time HENMT Ears: external ears normal General nose exam: Normal external nose present Eyes Conjunctivae: conjunctivae normal Sclerae: sclerae normal Pupils: Equal, round and reactive pupils present Neck Neck: Yes no lymphadenopathy and Yes no JVD Thyroid: Thyroid normal Carotids: no bruits Resp Effort & Inspection: normal respiratory effort and not tachypneic Auscultation: no crackles, no rales, no rhonchi and no wheezes Cardio Rate: regular rate Rhythm: regular rhythm Heart sounds: no murmurs and normal S1 and S2 Neuro General: oriented to person, oriented to place and oriented to time Cranial nerves: Yes Equal, round and reactive pupils present Speech: No Abnormal speech present Gait exam (Neuro): Normal gait present Extrem Right lower extremity: full ROM and edema Left lower extremity: full ROM, edema and foot Details: no tenderness Psych Mental Status: mental status grossly normal Speech and movement: Normal speech and movement present Affect: normal affect Attitude: cooperative Thought process: Normal thought process present Coding Level of Care Code Est Pt Level 3 (47610) Diagnoses Leg swelling M79.89 Pain of left heel M79.672 Time Spent (min) 29 Assessment & Plan Assessment & Plan (1) Leg swelling: Code(s): M79.89 - Other specified soft tissue disorders Category: Medical Plan: The patient is requesting a diuretic to decrease fluids in her legs. Patient unable to fit compression stocking. Patient struggles with hypokalemia intermittently, 3.8 last time checked. We will try the patient on spironolactone 25 mg x4 weeks then re-evaluate. (2) Pain of left heel: Code(s): M79.672 - Pain in left foot Category: Medical Plan: Left Calcaneus x-ray ordered to further evaluate. Orders: Orders XR calcaneus LT min 2V 01/05/25 M79.672 - Pain in left foot Medications: New spironolactone 25 mg PO DAILY 28 tabs 0RF 4 weeks M79.89 - Other specified soft tissue disorders Refilled ketorolac maximum total duration of 5 days from all oral, intranasal, or parenteral formulations 30 mg IM Q4-6H PRN 10 mL 3RF pain
--- OUTSIDE RECORDS SUMMARY | 2025-01-03 17:01 | XMS_ITS ---
Author Organization [facility] Address [address] [place] [phone] Care Team Providers Care Tank Calibrator Name Role Phone Diallo Chavez Primary Care Provider REASON FOR VISIT Patient presents today for an office visit f/u for achalasia,IBS,GERD Encounters Encounter Location Date Provider Diagnosis [facility] [address] [place] [phone] 01/07/2024 Diallo Chavez Plan Of Treatment No Information Progress Notes * JP LARRYINEDOB: 1980 (44 yo F)Acc No.[id number]:01/07/2024 Progress Notes Patient:?PERNELL SERRANOGOROSEANNA Provider:?Diallo Chavez MD :1980???Age:43 Y???Sex:Female D ate:01/07/2024 Address:[address] [place], [place] [phone] Subjective: * Chief Complaints: * ???1. Patient [...] MD Date:? 024 Generated for Megani fatimah/Olga/eTransmitting on:?01/03/2025 05:00 PM EDT
--- OUTSIDE RECORDS SUMMARY | 2025-01-03 17:01 | XMS_ITS | Patient Health Record ---
Author Organization [facility] Address [address] [place] [phone] Care Team Providers Care Inspector Floor Sub Assembly Name Role Phone Diallo Chavez Primary Care [...] Problem Status W/U Status Risk Notes Problem 791076241 Abdominal bloating (R14.0) Active confirmed Problem 459604968 Generalized abdominal pain (R10.84) Active confirmed Problem Dysphagia (23938489) Dysphagia (R13.10) Active confirmed Problem Irritable bowel syndrome (98607869) IBS (irritable bowel syndrome) (K58.9) Active confirmed Problem 30991312 Achalasia (K22.0) Active confirmed Problem Gastroesophageal reflux disease (895934342) GERD (gastroesophag eal reflux disease) (K21.9) Active confirmed Encounters Encounter Location Date Provider Diagnosis [facility] [address] [place] [address] 01/07/2024 Diallo Chavez Plan Of Treatment No Information Medical (General) History Medical History History ICD Code Achalasia treated with a loli gical Heller myotomy in [place] in 2003--last EGD was in 08/2010-no retained food nor obstruction--saw Dr. Rekha Martinez from Thoracic surgery in 2010-did not feel that surgery was needed at that time--saw Dr. Katz at [facility] in 03/2014-had a Barium swallow and esophageal motility study--no surgery recommended. She did followup with Dr. Katz and Dr. Lambert at [facility] in 2014 but did not have any surgery nor POEM procedure done. We are trying to get her an appointment to see Dr. Qiu at [facility]. She did see Dr. Qiu in 11/2015--had a Barium swallow and CT scan--he needs to do an EGD and then decide about any possible treatment for the Achalasia. She has been followed by Dr. Qiu, Dr. Mccray(Lapaoscopic surgeon) and Dr. Kent(Bariatric surgeon) at [facility]going back there in 07/2017 for F/U and [...] She has been seeing Dr. Blevins at [facility] since 2019 Headaches Denies [place],DM,CVA,Lung disease,renal dise ase Vitamin D deficiency Fibromyalgia/Hypermobility of the bones Regarding her achalasia, she has most recently been followed by Dr. Blevins at [facility] Department since May of [...] with Dr. Barnes Appendectomy 02/05/2015--Dr. Aguilar at [facility]
--- OUTSIDE RECORDS SUMMARY | 2025-01-03 17:01 | XMS_ITS ---
Author Organization [facility] Address [address] [place] [phone] Care Team Providers Care Recruiting Coordinator Name Role Phone Diallo Chavez Primary Care Provider [phone] REASON FOR VISIT Pt no show Encounters Encounter Location Date Provider Diagnosis [facility] [address] [place] [phone] 01/07/2024 Diallo Chavez Plan Of Treatment No Information Progress Notes * JP LARRYINEDOB: 1980 (43 yo F)Acc No.[id number]:01/07/2024 Patient:?ROSEANNA LARRY :1980???Age:43 Y???Sex:Female Address:[address] [place] [address] * true * Date:? Generated for Megani fatimah/Olga/eTransmitting on:?01/03/2025 05:01 PM EDT
--- OUTSIDE RECORDS SUMMARY | 2025-01-03 17:01 | XMS_ITS ---
Author Organization [facility] Address [address] [place] [phone] Care Team Providers Care Pediatric Immunologist Name Role Phone Diallo Chavez Primary Care Provider REASON FOR VISIT omeprazole refill Medications Medication SIG (Take, Route, Fr equency, Duration) Notes Start Date End Date Status Omeprazole 20 MG 1 Orally Every morni ng for 30 day(s) 09/08/2023 Active Encounters Encounter Location Date Provider Diagnosis [facility] [address] [place] [phone] 09/08/2023 Diallo Chavez Plan Of Treatment Medication Medication Name Sig Start Date Stop Date Notes Omeprazole 20 MG 1 Orally Every morning for 30 day(s) 05/2024 Progress Notes * JP LARRYINEDOB: 1980 (43 yo F)Acc No.[id number]:09/08/2023 Patient:?ROSEANNA LARRY :1980???Age:43 Y???Sex:Female Address:[address] [place] [address] * Refills? Start Omeprazole Capsule Delayed Release, 20 MG, Orally, 30, 1, Every morning, 30 day(s), Refills=11 * true * Date:? Generated for Sree sheridan/Olga/eTransmitting on:?01/03/2025 05:01 PM EDT
== END 2025-01-03 17:19 | disposition home or self-care (01) ==
LOC: HO.HMCH 16:03
DX: M79.89 Other specified soft tissue disorders (principal); M79.672 Pain in left foot

== ENCOUNTER → 2025-01-03 16:02 | Outpatient (BNVA) | payer OTHER, SELFPAY | DX: M79.89 Other specified soft tissue disorders (principal); M79.672 Pain in left foot | CPT/HCPCS: 99212 ==

== ENCOUNTER 2025-01-05 08:01 | Outpatient (REF) | payer OTHER, SELFPAY ==
--- NOTE | ~2025-01-05 | XR_ITS ---
EXAMINATION: XR CALCANEUS, LEFT CLINICAL INFORMATION: M79.672 - Pain in left foot COMPARISON: None available. TECHNIQUE: Lateral and axial views of the left calcaneus were obtained. FINDINGS: The bones and soft tissues are normal. No fracture. Alignment is anatomic. Subtalar joints and intertarsal joints imaged appear normal. The tibiotalar joint appears grossly normal. No enthesopathic spurs are evident involving the calcaneus. XR/XR calcaneus LT min 2V IMPRESSION: Normal left calcaneus. Electronically signed by: Jamey Vizcaino MD 01/05/2025 08:47 AM EDT
--- OUTSIDE RECORDS SUMMARY | 2025-01-05 08:05 | XMS_ITS ---
Author Organization [facility] Address [address] [place] [phone] Care Team Providers Care Fuel Cell Builder Name Role Phone Diallo Chavez Primary Care Provider [phone] REASON FOR VISIT Patient presents today for an office visit f/u for achalasia,IBS,GERD Encounters Encounter Location Date Provider Diagnosis [facility] [address] [place] [phone] 01/07/2024 Diallo Chavez Plan Of Treatment No Information Progress Notes * JP LARRYINEDOB: 1980 (44 yo F)Acc No.[id number]:01/07/2024 Progress Notes Patient:?PERNELL SERRANOGOROSEANNA Provider:?Diallo Chavez MD :1980???Age:43 Y???Sex:Female D ate:01/07/2024 Address:[address] [place], [place] [phone] Subjective: * Chief Complaints: * ???1. Patient [...] MD Date:? 024 Generated for Megani fatimah/Olga/eTransmitting on:?01/05/2025 08:04 AM EDT
--- OUTSIDE RECORDS SUMMARY | 2025-01-05 08:05 | XMS_ITS | Patient Health Record ---
Author Organization [facility] Address [address] [place] [phone] Care Team Providers Care Entry Level Marketing Representative Name Role Phone Diallo Chavez Primary Care Provider [phone] Allergies Allergen (clinical drug ingredient) Drug/Non Drug [...] Problem Status W/U Status Risk Notes Problem 292396629 Abdominal bloating (R14.0) Active confirmed Problem 679890025 Generalized abdominal pain (R10.84) Active confirmed Problem Dysphagia (56000715) Dysphagia (R13.10) Active confirmed Problem Irritable bowel syndrome (62806772) IBS (irritable bowel syndrome) (K58.9) Active confirmed Problem 98450138 Achalasia (K22.0) Active confirmed Problem Gastroesophageal reflux disease (784245788) GERD (gastroesophag eal reflux disease) (K21.9) Active confirmed Encounters Encounter Location Date Provider Diagnosis [facility] [address] [place] [address] 01/07/2024 Diallo Chavez Plan Of Treatment No Information Medical (General) History Medical History History ICD Code Achalasia treated with a loli gical Heller myotomy in [place] in 2003--last EGD was in 08/2010-no retained food nor obstruction--saw Dr. Rekha Martinez from Thoracic surgery in 2010-did not feel that surgery was needed at that time--saw Dr. Katz at [facility] in 03/2014-had a Barium swallow and esophageal motility study--no surgery recommended. She did followup with Dr. Katz and Dr. Lambert at [facility] in 2014 but did not have any surgery nor POEM procedure done. We are trying to get her an appointment to see Dr. Qiu at [facility] for spring. She did see Dr. Qiu in 11/2015--had a Barium swallow and CT scan--he needs to do an EGD and then decide about any possible treatment for the Achalasia. She has been followed by Dr. Qiu, Dr. Mccray(Lapaoscopic surgeon) and Dr. Kent(Bariatric surgeon) at [facility]--going back there in 07/2017 for F/U and [...] has been seeing Dr. Blevins at [facility] since 2019 Headaches Denies [place],DM,CVA,Lung disease,renal dise ase Vitamin D deficiency Fibromyalgia/Hypermobility of the bones Regarding her achalasia, she has most recently been followed by Dr. Blevins at [facility] since May of [...] Surgery Date(Month/Year) Heller myotomy as above--2004 in [place] [facility] in 10/[address] Barnes Appendectomy 02/05/2015--Dr. Aguilar at [facility]
--- OUTSIDE RECORDS SUMMARY | 2025-01-05 08:05 | XMS_ITS ---
Author Organization [facility] Address [address] [place] [phone] Care Team Providers Care Cuff Knitter Name Role Phone Diallo Chavez Primary Care Provider REASON FOR VISIT Pt no show Encounters Encounter Location Date Provider Diagnosis [facility] [address] [place] [phone] 01/07/2024 Diallo Chavez Plan Of Treatment No Information Progress Notes * JP LARRYINEDOB: 1980 (43 yo F)Acc No.[id number]:01/07/2024 Patient:?ROSEANNA LARRY :1980???Age:43 Y???Sex:Female Address:[address] [place] [address] * true * Date:? Generated for Megani fatimah/Olga/eTransmitting on:?01/05/2025 08:04 AM EDT
--- OUTSIDE RECORDS SUMMARY | 2025-01-05 08:05 | XMS_ITS ---
Author Organization [facility] Address [address] [place] [phone] Care Team Providers Care Log Loader Name Role Phone Diallo Chavez Primary Care Provider [phone] REASON FOR VISIT omeprazole refill Medications Medication SIG (Take, Route, Fr equency, Duration) Notes Start Date End Date Status Omeprazole 20 MG 1 Orally Every morni ng for 30 day(s) 09/08/2023 Active Encounters Encounter Location Date Provider Diagnosis [facility] [address] [place] [phone] 09/08/2023 Diallo Chavez Plan Of Treatment Medication Medication Name Sig Start Date Stop Date Notes Omeprazole 20 MG 1 Orally Every morning for 30 day(s) 05/2024 Progress Notes * JP LARRYINEDOB: 1980 (43 yo F)Acc No.[id number]:09/08/2023 Patient:?ROSEANNA LARRY :1980???Age:43 Y???Sex:Female Address:[address] [place] [address] * Refills? Start Omeprazole Capsule Delayed Release, 20 MG, Orally, 30, 1, Every morning, 30 day(s), Refills=11 * true * Date:? Generated for Sree sheridan/Olga/eTransmitting on:?01/05/2025 08:04 AM EDT
== END 2025-01-05 08:02 | disposition home or self-care (01) ==
LOC: HO.XRAY 08:01
DX: M79.672 Pain in left foot (principal)
CPT/HCPCS: 73650

== ENCOUNTER → 2025-01-05 08:07 | Outpatient (BNV) | payer OTHER, SELFPAY | PROVIDERS: Visit Provider Radiology Diagnostic Radiology | DX: M79.672 Pain in left foot (principal) | CPT/HCPCS: 73650 ==

== ENCOUNTER 2025-02-09 08:25 | Outpatient (AMB) | payer OTHER, SELFPAY ==
--- OUTSIDE RECORDS SUMMARY | 2025-02-09 08:35 | XMS_ITS ---
Author Organization [facility] Address [address] [place] [phone] Care Team Providers Care Consignee Name Role Phone Diallo Chavez Primary Care Provider [phone] REASON FOR VISIT Patient presents today for an office visit f/u for achalasia,IBS,GERD Encounters Encounter Location Date Provider Diagnosis [facility] [address] [place] [phone] 01/07/2024 Diallo Chavez Plan Of Treatment No Information Progress Notes * JP LARRYINEDOB: 1980 (44 yo F)Acc No.[id number]:01/07/2024 Progress Notes Patient:?PERNELL SERRANOGOROESANNA Provider:?Diallo Chavez MD :1980???Age:43 Y???Sex:Female D ate:01/07/2024 Address:[address] [place], [place] [phone] Subjective: * Chief Complaints: * ???1. Patient [...] MD Date:? 024 Generated for Megani fatimah/Olga/eTransmitting on:?02/09/2025 08:35 AM EDT
[2025-02-09 08:37] VITALS: BP 122/84; PULSE 79; RESP 16; TEMP 36.6; O2SAT 98; BMI 46.1
--- NOTE | 2025-02-09 08:37 | MHC.PC.OV ---
Vital Signs 02/09/25 08:37 Height 5 ft 1 in Weight 244 lb BMI 46.1 BP 122/84 Blood Pressure Location Lt brachial Position Sitting Respiration 16 Pulse 79 Pulse Source Pulse Oximeter Temp 97.9 F Temp Source Oral Pulse Oximetry (%) 98 Oxygen Delivery Method Room Air Intake Visit Reasons: Annual exam Sql Programmer Required: No Accompanied by: Self / Same As Patient Allergies Benadryl Allergy (Unknown, Verified 02/09/25 08:43) angioedema, facial swelling From BENADRYL Allergy (Unknown, Uncoded 02/09/25 08:43) ITCHING ON FACE hard water and soap Allergy (Unknown, Uncoded 02/09/25 08:43) rash Medication List - Last Reconciled 02/09/25 by GAEL Frazier ketorolac 30 mg IM Q4-6H PRN spironolactone 25 mg PO DAILY 4 weeks syringe with needle As directed Tobacco use date assessed: 02/09/25 Dental Screening Dental Screen Date: 02/09/25 Did you have a dental visit in the last 12 months?: No Did you have a dental problem in the last 6 months where you did not have access to dental care?: No Was dental information given to patient?: No HPI Annual exam HPI Details Patient is presenting for annual physical today accompanied by her Dentist: no-a year and half, recommend making an appt Eye: up to date Snellen: Right: Left: Corrected vision: yes, glasses STI screening:n/a Colonoscopy: due for a colonoscopy, Dr Hernandez in [facility]-is the GI surgeon and Dr. Chavez GI-she gets frequent endoscopy and will try to schedule her colonoscopy with her next endoscopy Pap Smer: She has an appt on the March 27, 2025 Mammogram: order was placed on previous visit, has not been done as yet PHQ-9:n/a Flu:no COVID: x1 Tdap:due-given in office Diet: most of her meats are through drinking due to 70% of stomach inactive Exercise:n/a Reports that she does not have any feeling in her stomach since her last procedure She has a plan for surgery in March, but she is not sure of the details as yet Anemia: reports the hemology is planning to give her once transfusion of iron a month. Reports that she was seen by jerome kent DNP that is working with Dr. Alston her technology integration specialist will hold off doing more blood work for now. denies chest pain, sob, heart palpitation chronic migraine, but feeling well today no feeling abdomen-but no changes in bowel habits denies urinary symptoms PFSH Medical History Annual physical exam Normal Pap smear Hypermobile joint syndrome of multiple sites Obese Hyperlipemia Fibromyalgia Lumbar degenerative disc disease Achalasia Carpal tunnel syndrome Migraine headache Surgical History Hx of cosmetic surgery History of tonsillectomy and adenoidectomy Hx of section Hx of cholecystectomy History of appendectomy Family History Father No problems noted. Mother No problems noted. Daughter Short-term memory loss Learning disability Son Premature Son Learning disability Autism Social History Household Members: Spouse and Children Housing: House Are you a primary wound care center consultant to a significant other at home: Yes Do you presently have visiting nurse or other home services: No Alcohol intake: never Patient Tobacco Use Status: Never used Tobacco e-Cigarette/Vaping Use: Never Used service: No Current occupational status: employed Cognitive needs: No Hearing needs: No Vision needs: Yes (Glasses) Questionnaire PHQ-9 Over the last 2 weeks, how often have you been bothered by any of the following problems? 1. Little interest or pleasure in doing things: not at all 2. Feeling down, depressed, or hopeless: not at all 3. Trouble falling or staying asleep, or sleeping too much: not at all 4. Feeling tired or having little energy: not at all 5. Poor appetite or overeating: not at all 6. Feeling bad about yourself - or that you are a failure or have let yourself or your family down: not at all 7. Trouble concentrating on things, such as reading the newspaper or watching television: not at all 8. Moving or speaking so slowly that other people could have noticed. Or the opposite - being so fidgety or restless that you have been moving around a lot more than usual: not at all 9. Thoughts that you would be better off or of hurting yourself in some way: not at all Total score: 0 Depression Screening Interpretation: Negative Depression Screening Done: Yes Source: Developed by Drs. Diallo Zuleta, Sandra Arana, Henry Narayan and colleagues, with an educational jose from [employer]. Thrive Questionnaire Date Thrive assessed: 02/09/25 I am a: Patient What is your living situation today?: I have a steady place to live Within the past 12 months, did the food you bought not last and you didn't have the money to get more?: Often true Within the past 12 months, did you worry whether your food would run out before you got money to buy more?: Never true Do you have trouble paying for medicines?: No Do you have trouble getting transportation to medical appointments?: No Do you have trouble paying your heating and electricity bill?: No Do you have trouble taking care of your child, family member or friend?: No Do you have trouble with day-to-day activities such as bathing, preparing meals, shopping, managing finances, etc.?: No Are you currently unemployed and looking for a job?: No Are you interested in more education?: No Please select the resources that you would like help with: None Currently or been in a relationship where the following occur: No concerns reported THRIVE Score: 1 AUDIT C Alcohol Use Questionnaire (AUDIT-C) 1. How often do you have a drink containing alcohol?: Never 3. How often do you have six or more drinks on one occasion?: Never Total Score: 0 Score Reviewed/Action Taken: No LEEANNA-7 AMB Questionnaire LEEANNA-7 Date LEEANNA - 7 assessed: 02/09/25 Feeling nervous, anxious, or on edge: 0 = Not at all Not being able to stop or control worryin = Not at all Worrying too much about different things: 0 = Not at all Trouble relaxin = Not at all Being so restless that it is hard to sit still: 0 = Not at all Becoming easily annoyed or irritable: 0 = Not at all Feeling afraid as if something awful might happen: 0 = Not at all Total LEEANNA-7 score (0-4 normal; 5-9 mild; 10-14 moderate; 15-21 severe): 0 Source: Developed by Drs. Diallo Zuleta, Sandra Arana, Henry Narayan and colleagues, with an educational jose from [employer]. Review of Systems Const Reports headache(s) (Chronic-improve on treatment) Eyes Denies loss of vision ENT Denies vertigo, Denies dizziness, Reports headache(s) (Chronic-improve on treatment) and Denies sore throat Card Denies chest pain, Denies leg edema and Denies lightheadedness Resp Denies cough, Denies hemoptysis and Denies wheezing GI Denies abdominal pain, Denies melena, Denies constipation, Denies diarrhea and Denies vomiting Denies urinary frequency, Denies dysuria and Denies urinary urgency Musc Denies arthralgias, Denies joint swelling, Denies numbness, Denies tingling and Reports other (crepitus sounds in bilateral knees with no pain due to high pain tolerance) Skin/Breast Reports rash (recurrent ezcema appearing rash to face) Neuro Denies Abnormal speech present, Denies behavioral changes, Denies vertigo, Denies dizziness, Reports headache(s) (Chronic-improve on treatment), Denies loss of vision, Denies memory loss, Denies numbness and Denies tingling Psych Denies anxiety, Denies behavioral changes, Denies depression, Denies memory loss and Denies panic attacks Ced/Lymph Denies easy bleeding and Denies easy bruising Aller/Immun Denies wheezing Physical exam (Primary Care) Vital Signs: Last Vital Signs Temp 97.9 F 02/09/25 08:37 Pulse 79 02/09/25 08:37 Resp 16 02/09/25 08:37 BP 122/84 02/09/25 08:37 Pulse Ox 98 02/09/25 08:37 Oxygen Delivery Method Room Air 02/09/25 08:37 BMI result Body Mass Index 46.1 Tobacco/Smoking Status: Tobacco use Status Tobacco use date assessed 02/09/25 02/09/25 08:43 Patient Tobacco Use Status Never used Tobacco 02/09/25 08:43 e-Cigarette/Vaping Use Never Used 02/09/25 08:43 PHQ-9: PHQ-9 Score PHQ-9: Total score 0 02/09/25 17:11 Depression Screening Interpretation: Negative Thrive Assessment: Date of Thrive Assessment Date Thrive assessed 02/09/25 02/09/25 08:43 Currently or been in a relationship where the following occur: No concerns reported Const General: healthy appearing, no acute distress, alert and awake Nutritional Appearance: well nourished Orientation/consciousness: oriented to person, oriented to place and oriented to time HENMT Ears: TM's normal bilaterally General nose exam: Normal nasal mucous membranes and turbinates present Eyes Conjunctivae: conjunctivae normal Sclerae: sclerae normal Pupils: Equal, round and reactive pupils present Neck Neck: Yes no lymphadenopathy and Yes no JVD Thyroid: Thyroid normal Carotids: no bruits Resp Effort & Inspection: normal respiratory effort and not tachypneic Auscultation: no crackles, no rales, no rhonchi and no wheezes Cardio Rate: regular rate Rhythm: regular rhythm Heart sounds: no murmurs and normal S1 and S2 GI Inspection: Yes scar (s/p surgical procedures) Palpation (GI): Soft to palpation, nontender, no hepatomegaly and no splenomegaly Auscultation: normal bowel sounds General: Yes no CVA tenderness Back/Spine/Pelvis Back: no CVA tenderness Skin General skin exam: no rashes or lesions noted and dry skin Neuro General: oriented to person, oriented to place and oriented to time Cranial nerves: Yes Equal, round and reactive pupils present Speech: No Abnormal speech present Gait exam (Neuro): Normal gait present Motor exam (neuro): no tremor noted Extrem Right upper extremity: full ROM Left upper extremity: full ROM Right lower extremity: full ROM and knee Details: no tenderness; no edema Left lower extremity: full ROM and knee Details: no tenderness; no edema Psych Mental Status: mental status grossly normal Speech and movement: Normal speech and movement present Affect: normal affect Attitude: cooperative Thought process: Normal thought process present Immunizations Tenivac (PF) 5 Lf unit-2 Lf unit/0.5 mL intramuscular syringe Performing Provider: GAEL Frazier [facility] Administered by: DAVID Arizmendi on 02/09/25 09:02 Dose Route Admin Location Dispensed Lot Number Expiration Date [facility] [place] 0.5 mL IM Right Deltoid 0.5 mL [id number] 10/29/26 14377-018-48 [employer] VIS Given Date VIS Provided VIS Publication Date 02/09/25 Single Vaccine 21 Eligibility Eligibility Date Funding Source Not VFC Eligible 02/09/25 Private Results Reviewed Results Reviewed: Laboratory Tests 12/22/24 01/19/25 09:44 10:57 WBC 8.2 RBC 4.64 Hgb 11.3 L Hct 36.4 L MCV 78.4 L MCH 24.4 L MCHC 31.0 RDW 19.1 H Plt Count 340 MPV 9.6 Sodium 143 Potassium 4.0 Chloride 109 H Carbon Dioxide 27 Anion Gap 11 L BUN 10 Creatinine 0.62 Estim Creat Clear Calc 129.4 Estimated GFR > 60 Random Glucose 89 Calcium 9.4 Iron 26 L TIBC 350 % Saturation 7 L Unsat Iron Binding 324 Ferritin 8 L Total Bilirubin 0.7 AST 21 ALT 13 Alkaline Phosphatase 96 Lactate Dehydrogenase 200 Total Protein 7.3 Albumin 4.1 Vitamin B12 349 Folate 9.8 Urine Color Yellow Urine Appearance Clear Urine pH 5.5 Ur Specific [place] 1.015 Urine Protein Negative Urine Glucose (UA) Negative Urine Ketones Negative Urine Blood Negative Urine Nitrite Negative Ur Leukocyte Esterase Negative Coding Level of Care Code Est Pt Prev Care 40-64y(18519) Diagnoses Annual physical exam Z00.00 Onychomycosis B35.1 Seasonal allergies J30.2 Crepitus of both knee joints M23.8X1; M23.8X2 Hypermobile joint syndrome of multiple sites M24.80 Hyperlipidemia, unspecified hyperlipidemia type E78.5 Hyperlipidemia type: unspecified Migraine with status migrainosus, not intractable, unspecified migraine type G43.901 Intractability: not intractable Migraine type: unspecified Status migrainosus presence: with status migrainosus Achalasia K22.0 Fibromyalgia M79.7 BMI 45.0-49.9, adult Z68.42 Iron deficiency anemia secondary to inadequate dietary iron intake D50.8 Anemia type: iron deficiency Iron deficiency anemia type: inadequate dietary iron intake Time Spent (min) 39 Assessment & Plan Assessment & Plan (1) Annual physical exam: Comment: well-balanced diet regular exercise and weight loss discussed with the patient Code(s): Z00.00 - Encounter for general adult medical examination without abnormal findings Category: Medical Plan: Preventative guidelines and recent labs reviewed with the patient. She is due for colonoscopy, she has been managed by Dr. Chavez and she is being monitored frequent via endoscopy, the patient will try to schedule her colonoscopy with one of her planned endoscopies. Mammogram was ordered on her previous visit and she has an upcoming appointment. (2) Onychomycosis: Comment: Patient will get referral to Podiatry. Code(s): B35.1 - Tinea unguium Category: Medical Plan: Patient was referred to podiatry on previous visit (3) Seasonal allergies: Comment: Patient would like referral to information systems professor for assessment. Code(s): J30.2 - Other seasonal allergic rhinitis Category: Medical Plan: Limit exposure to allergens Air purifiers and dust filters Air conditioner in house, especially where sleeping (4) Crepitus of both knee joints: Comment: Will order x-ray of bilateral knees. Will refer for to orthopedics. Code(s): M23.8X1 - Other internal derangements of right knee; M23.8X2 - Other internal derangements of left knee Category: Medical Plan: X-rays showed left knee with mild arthritic changes of the lateral joint space Continue ketorolac 30 mg IM Q4-6H prn (5) Hypermobile joint syndrome of multiple sites: Code(s): M24.80 - Other specific joint derangements of unspecified joint, not elsewhere classified Category: Medical Plan: No pain or injuries noted follow with specialist (6) Hyperlipemia: Code(s): E78.5 - Hyperlipidemia, unspecified Category: Medical Qualifiers: Hyperlipidemia type: unspecified Qualified Code(s): E78.5 - Hyperlipidemia, unspecified Plan: tri 116, t-cho 186, ldl 117, 11/2024 Discussed lifestyle modifications including dietary changes and physical activity (7) Migraine headache: Comment: f/u Dr. Naik Code(s): G43.909 - Migraine, unspecified, not intractable, without status migrainosus Category: Medical Qualifiers: Intractability: not intractable Migraine type: unspecified Status migrainosus presence: with status migrainosus Qualified Code(s): G43.901 - Migraine, unspecified, not intractable, with status migrainosus Plan: Continue ketorolac 30 mg IM q.4 to 6 hours p.r.n. Follow up with Neurology as scheduled (8) Achalasia: Comment: f/u Code(s): K22.0 - Achalasia of cardia Category: Medical Plan: Frequent endoscopy with dilatation Follow up with GI as scheduled (9) Fibromyalgia: Comment: f/u rheumatology [facility] Code(s): M79.7 - Fibromyalgia Category: Medical Plan: Maintain physical activity as tolerated Follow up with rheumatology as scheduled (10) BMI 45.0-49.9, adult: Code(s): Z68.42 - Body mass index [BMI] 45.0-49.9, adult Category: Medical Plan: Encouraged to exercise for at least 30 minutes a day/5 days a week Diet modification as tolerated to promote weight loss Encouraged to increase water intake 6-8 glasses a day (11) Anemia: Code(s): D64.9 - Anemia, unspecified Category: Medical Qualifiers: Anemia type: iron deficiency Iron deficiency anemia type: inadequate dietary iron intake Qualified Code(s): D50.8 - Other iron deficiency anemias Plan: Microcytic, microchromic anemia Plans for iron infusion Follow up with Hematology as scheduled Orders: Orders Td Immunization Today Z23 - Encounter for immunization
== END 2025-02-09 09:20 | disposition home or self-care (01) ==
LOC: HO.HMCH 08:26
DX: Z00.00 Encounter for general adult medical examination without abnormal findings (principal); B35.1 Tinea unguium; J30.2 Other seasonal allergic rhinitis; Z68.42 Body mass index [BMI] 45.0-49.9, adult; M23.8X1 Other internal derangements of right knee; M23.8X2 Other internal derangements of left knee; M24.80 Other specific joint derangements of unspecified joint, not elsewhere classified; E78.5 Hyperlipidemia, unspecified; G43.901 Migraine, unspecified, not intractable, with status migrainosus; K22.0 Achalasia of cardia; M79.7 Fibromyalgia; D50.8 Other iron deficiency anemias; Z23 Encounter for immunization

== ENCOUNTER → 2025-02-09 08:25 | Outpatient (BNVA) | payer OTHER, SELFPAY | DX: Z00.00 Encounter for general adult medical examination without abnormal findings (principal); B35.1 Tinea unguium; J30.2 Other seasonal allergic rhinitis; M23.8X1 Other internal derangements of right knee; M23.8X2 Other internal derangements of left knee; E78.5 Hyperlipidemia, unspecified; G43.901 Migraine, unspecified, not intractable, with status migrainosus; K22.0 Achalasia of cardia; M79.7 Fibromyalgia; D50.8 Other iron deficiency anemias; Z23 Encounter for immunization | CPT/HCPCS: 90471; 90714; 99396 ==

== ENCOUNTER 2025-02-25 08:14 | Outpatient (REF) | payer OTHER, SELFPAY ==
--- OUTSIDE RECORDS SUMMARY | 2024-01-07 05:20 | XMS_ITS ---
Author Organization [facility] Address [address] [place] [address] Care Team Providers Care Health Services Director Name Role Phone Diallo Chavez Primary Care Provider REASON FOR VISIT Patient presents today for an office visit f/u for achalasia,IBS,GERD Encounters Encounter Location Date Provider Diagnosis [facility] [address] [place] [id number] 01/07/2024 Diallo Chavez Plan Of Treatment No Information Progress Notes * PERNELL VELÁZQUEZ JPINEDOB: 1980 (44 yo F)Acc No.[id number]:01/07/2024 Progress Notes Patient: Kush TREADWELL EBER RICKEY Provider: Marycarmen Chavez MD :1980 A ge:43 Y S ex:Female Date:01/07/2024 Address:[address] [place], [place] [id number] Subjective: * Chief Complaints: * 1 . [...] Pending * Provider: Marycarmen Chavez MD Date: 01/07/2024 Generated for Megani fatimah/Olga/eTransmitting on: 02/25/2025 08:16 AM EDT
== END 2025-02-25 08:15 | disposition home or self-care (01) ==
LOC: HO.MAMMO 08:14
DX: Z13.89 Encounter for screening for other disorder (principal)

== ENCOUNTER → 2025-04-07 09:30 | Outpatient (BNV) | payer OTHER, SELFPAY | PROVIDERS: Visit Provider Nurse Practitioner Family | DX: D50.9 Iron deficiency anemia, unspecified (principal) | CPT/HCPCS: 99213 ==

== ENCOUNTER → 2025-05-04 10:54 | Outpatient (RCR) | payer OTHER, SELFPAY ==
[2025-03-30 12:09] VITALS: BP 105/51; PULSE 75; RESP 16; TEMP 36.6; O2SAT 97
[2025-04-06 12:11] VITALS: BP 105/58; PULSE 85; RESP 16; TEMP 36.6; O2SAT 96
[2025-04-13 12:00] VITALS: BP 106/69; PULSE 72; RESP 18; TEMP 36.4
[2025-04-20 12:00] VITALS: BP 102/62; PULSE 88; RESP 16; TEMP 36.3; O2SAT 99
[2025-04-27 10:46] VITALS: BP 121/67; PULSE 78; RESP 16; TEMP 36.9; O2SAT 94
[2025-05-04 09:26] VITALS: BP 106/68; PULSE 74; RESP 16; TEMP 36.6; O2SAT 100
[2025-05-04 09:55] LABS: Hematocrit 40.0 % (37.0-47.0); Hemoglobin 13.1 g/dl (12.0-16.0); Mean Corpuscular HGB Conc 32.8 g/dl (31.0-35.0); Mean Corpuscular Hemoglobin 27.8 pg (27.0-33.0); Mean Corpuscular Volume 84.7 fL (80.0-98.0); NRBC Abs Auto 0.000 X10*3/uL (0.0-0.012); NRBC Pct Auto 0.0 /100WBC (0.0-0.2); Platelet Count 259 X10*3/uL (160-400); Red Blood Count 4.72 X10*6/uL (4.20-5.50); White Blood Count 8.4 X10*3/uL (4.8-10.8)
[2025-05-04 10:39] LABS: Ferritin 300 ng/mL (10-250)
== END | disposition home or self-care (01) ==
LOC: HO.INF 03-30 11:58
PROVIDERS: Visit Provider Nurse Practitioner Family
DX: D50.9 Iron deficiency anemia, unspecified (principal)
CPT/HCPCS: 36415; 82728; 85027; 96365; 96374; J1756

== ENCOUNTER 2025-06-08 10:43 | Outpatient (AMB) | payer MEDICAID, SELFPAY ==
--- NOTE | 2025-06-08 11:06 | A.OFFVIS_ITS ---
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 Has never had a Mammogram before due to breast lift and having to get Division Sergeant: Division Sergeant Present (Shoshana) Accompanied by: Self / Same As Patient Allergies Benadryl Allergy (Unknown, Verified 06/08/25 11:11) angioedema, facial swelling From BENADRYL Allergy (Unknown, Uncoded 03/23/25 10:31) ITCHING ON FACE hard water and soap Allergy (Unknown, Uncoded 03/23/25 10:31) rash Medication List - Last Reconciled 06/08/25 by Indira Menendez CNM folic acid 1 mg PO DAILY ketorolac 30 mg IM Q4-6H PRN syringe with needle As directed Is last menstrual period known: Yes Last menstrual period: 05/27/25 Post menopausal: No Patient : No HPI HPI 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 She had her babies all by in [place] and research cites a very complicated OB history of no periods in her life from age 15 when she had spotting to age 28 and she was told she could not get and she had 3 pregnancies that she never knew about until it was time for there births the 1st baby was delivered by at 5 months anyway the lb and a half and his intestines were outside his body. She developed achalasia during the last and said she lost 10 lb a day in the and spent the entire year after in the hospital in [place] and she only has a liquid diet with shakes and she is very picky and she has steroid injections that she uses and she also has a history of having had a breast lift surgery and the wound has not healed and so she needs another surgery and so she has not had a mammogram and says she did not before the breast surgery either she also had some sort of abdominal surgery to remove the skin and she is awaiting surgery on both breasts and abdomen coming up soon. She is in a monogamous relationship with her she says she exercises at home because her has a home gym. 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 She is sexually active with her she does not worry about control and says she is allergic to it all anyway. [facility] Medical History Annual physical exam Normal Pap smear Hypermobile joint syndrome of multiple sites Obese Hyperlipemia Fibromyalgia Lumbar degenerative disc disease Achalasia Carpal tunnel syndrome Migraine headache Surgical History Hx of cosmetic surgery History of tonsillectomy and adenoidectomy Hx of section Hx of cholecystectomy History of appendectomy Family History Father No problems noted. Mother No problems noted. Daughter Short-term memory loss Learning disability Son Premature Son Learning disability Autism Social History Household Members: Spouse and Children Housing: House Are you a primary home day care provider to a significant other at home: Yes Do you presently have visiting nurse or other home services: No Alcohol intake: never Patient Tobacco Use Status: Never used Tobacco e-Cigarette/Vaping Use: Never Used service: No Current occupational status: employed Cognitive needs: No Hearing needs: No Vision needs: Yes (Glasses) Female Reproductive History Menstrual Age of Menarche: 15 Duration of menses: 3-5 days Date of last menstrual period: 05/27/25 control method: none Total pregnancies: 3 Full term: 1 Premature: 2 History of abnormal pap smear: Yes Physical Exam Vital Signs: Last Vital Signs BP 122/74 06/08/25 11:13 BMI result Body Mass Index 45.3 Const General: healthy appearing, comfortable, no acute distress, well developed and alert Nutritional Appearance: average body habitus and obese Orientation/consciousness: patient oriented x3 Limitations: no limitations HEENT Head: Yes normocephalic Neck Neck: Yes normal visual inspection Chest Other: Patient has scars are in some stage of healing on the right side and patient says she is going to be having repeat breast surgery and abdominal surgery to deal with scar tissue and skin coming up very soon in [place]. Breasts are uniformly lumpy as well patient informed me that the scar is essentially ?open so I did not palpate the scar itself. She says [facility] told her he would not touch her breasts with mammogram until she is well healed and she is going to be having repeat surgery coming up. Chest palpation & inspection: normal inspection of the chest Breast/axilla inspection: normal inspection of the axillae Breast/axilla palpation: normal palpation of the axillae Resp Effort & Inspection: normal respiratory effort GI Inspection: Yes normal to inspection, No Abdominal wall edema and No distended Palpation (GI): Soft to palpation and nontender Other: Vagina is pink and moist with very healthy-appearing clear mucus cervix difficult to visualize but when it was visualize its pink and healthy mobile nontender uterus midposition mobile nontender very good tone with Kegel. General: Yes bladder normal to palpation External Female Exam: normal external appearance and normal appearance of the urethra Speculum Exam - Vagina: normal appearance of the vagina, normal palpation and normal vaginal discharge Speculum Exam - Cervix: normal appearance of the cervix, normal palpation and nontender Bimanual exam- vagina & uterus: normal bimanual exam, normal palpation, uterine size normal, bladder normal to palpation, consistency normal, normal palpation, uterine mobility normal, uterine shape normal, No Cervical tenderness present, non-tender and no cervical motion tenderness Bimanual Exam- Adnexa, other: normal adnexae, no masses, normal and No adnexal tenderness Neuro General: patient oriented x3 Assessment & Plan Assessment & Plan (1) Encounter for annual routine gynecological examination: Code(s): Z01.419 - Encounter for gynecological examination (general) (routine) without abnormal findings Category: Medical (2) Breast cancer screening: Code(s): Z12.39 - Encounter for other screening for malignant neoplasm of breast Category: Medical (3) Screening for malignant neoplasm of cervix: Code(s): Z12.4 - Encounter for screening for malignant neoplasm of cervix Category: Medical Plan -----Discussed in this visit the following: healthy balanced diet, regular and consistent exercise, getting recommended health screens, doing the best she can for her particular health concerns, kegel exercises, pap smear screening and followup recommendations, mammography screening and SBE, normal changes in cycles in her life stage--- . Discussed her very many medical concerns and issues and how she is managing them. I urged her to have a diff discussion with the surgeon who is going to be doing her breast surgery about breast cancer screening as it appears her mammogram surveillance has not been initiated in this process . Pap smear was done she was not worried about STDs but she accepted testing for gonorrhea chlamydia trichomoniasis bacterial vaginosis and yeast. RTC 1 year if this Pap smear is negative she might not need another Pap smear for 5 years. Coding Level of Care Code Est Pt Prev Care 40-64y(82153) Diagnoses Encounter for annual routine gynecological examination Z01.419 Breast cancer screening Z12.39 Screening for malignant neoplasm of cervix Z12.4
[2025-06-08 11:13] VITALS: BP 122/74; BMI 45.3
== END 2025-06-08 12:00 | disposition home or self-care (01) ==
LOC: HO.HWSM 10:43
PROVIDERS: Visit Provider Advanced Practice Midwife
DX: Z01.419 Encounter for gynecological examination (general) (routine) without abnormal findings (principal); Z12.39 Encounter for other screening for malignant neoplasm of breast
CPT/HCPCS: 99396; 99459

== ENCOUNTER 2025-06-08 10:43 | Outpatient (REF) | payer MEDICAID, SELFPAY ==
[2025-06-08 17:42] LABS: Bacterial Vaginosis PCR POSITIVE (Negative); Candida Group PCR DETECTED (Not Detect); Candida glab krusei PCR NOT DETECTED (Not Detect); Trichomonas vaginalis PCR NOT DETECTED (Not Detect)
[2025-06-08 18:08] LABS: CT PCR DETECTED (Not Detect.); NG PCR NOT DETECTED (Not Detect.)
== END 2025-06-08 10:44 | disposition home or self-care (01) ==
LOC: HO.LAB 10:43
PROVIDERS: Visit Provider Advanced Practice Midwife
DX: Z01.419 Encounter for gynecological examination (general) (routine) without abnormal findings (principal); Z20.2 Contact with and (suspected) exposure to infections with a predominantly sexual mode of transmission; Z12.39 Encounter for other screening for malignant neoplasm of breast; N89.8 Other specified noninflammatory disorders of vagina
CPT/HCPCS: 81515; 87491; 87591; 99396; 99459

== ENCOUNTER 2025-06-08 13:06 | Outpatient (REF) | payer MEDICAID, SELFPAY | END 2025-06-08 13:07 | disposition home or self-care (01) | LOC: HO.LNP 13:06 | PROVIDERS: Visit Provider Advanced Practice Midwife | DX: N89.8 Other specified noninflammatory disorders of vagina (principal); Z01.419 Encounter for gynecological examination (general) (routine) without abnormal findings; Z11.3 Encounter for screening for infections with a predominantly sexual mode of transmission | CPT/HCPCS: 87626; 88175 ==

== ENCOUNTER 2025-06-27 11:42 | Outpatient (REF) | payer MEDICAID, SELFPAY ==
[2025-06-28 09:57] LABS: Bacterial Vaginosis PCR POSITIVE (Negative); Candida Group PCR NOT DETECTED (Not Detect); Candida glab krusei PCR NOT DETECTED (Not Detect); Trichomonas vaginalis PCR NOT DETECTED (Not Detect)
[2025-06-28 10:28] LABS: CT PCR NOT DETECTED (Not Detect.); NG PCR NOT DETECTED (Not Detect.)
== END 2025-06-27 11:43 | disposition home or self-care (01) ==
LOC: HO.LNP 11:42
PROVIDERS: Visit Provider Advanced Practice Midwife
DX: Z12.4 Encounter for screening for malignant neoplasm of cervix (principal); Z20.2 Contact with and (suspected) exposure to infections with a predominantly sexual mode of transmission; A74.9 Chlamydial infection, unspecified
CPT/HCPCS: 81515; 87491; 87591; 99212

== ENCOUNTER 2025-06-27 11:42 | Outpatient (AMB) | payer MEDICAID, SELFPAY ==
--- OUTSIDE RECORDS SUMMARY | 2024-01-07 05:20 | XMS_ITS ---
Author Organization [facility] Address [address] [address] Care Team Providers Care Vulcanizer Rubber Plate Name Role Phone Erick Stapleton N.P. Primary Care Provider Karen Chavez Diallo Unavailable [phone] REASON FOR VISIT Patient presents today for an office visit f/u for achalasia,IBS,GERD Encounters Encounter Location Date Provider Diagnosis [facility] [address] [address] 01/07/2024 Diallo Chavez Plan Of Treatment Next Appt Details Provider Name:Diallo Chavez , 07/24/2025 08:30:00 AM, [address] [place] [address] , [place], [place], [phone], Progress Notes * JP LARRYINEDOB: 1980 (45 yo F)Acc No.[id number]:01/07/2024 Progress Notes Patient: Kush TREADWELL RICKEY VELÁZQUEZ Provider: Marycarmen Chavez MD :1980 A ge:43 Y S ex:Female Date:01/07/2024 Address:[address] [place], [place] [id number] Pcp:Erick Stapleton N.P. Subjective: * Chief Complaints: * 1 . Patient presents today for an office visit f/u for achalasia,IBS,GERD. * Medical History: Objective: * Vitals: Assessment: Plan: * Treatment: * * The named appointment provid er may or may not be the originator of this progress note, and it is not deemed complete until electronically signed by the appointment provider. Sign off status: Pending * Provider: Marycarmen Chavez MD Date: 0 01/07/2024 Generated for Sree sheridan/Olga/Xavier on: 1 03:02 PM EDT
--- NOTE | 2025-06-27 11:44 | MHC.OFFVIS ---
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: Loom Fixer Supervisor Present (Shoshana) Accompanied by: Self / Same As Patient Allergies Benadryl Allergy (Unknown, Verified 06/27/25 12:04) angioedema, facial swelling From BENADRYL Allergy (Unknown, Uncoded 03/23/25 10:31) ITCHING ON FACE hard water and soap Allergy (Unknown, Uncoded 03/23/25 10:31) rash Medication List - Last Reconciled 06/27/25 by Indira Menendez CNM doxycycline hyclate 100 mg PO BID folic acid 1 mg PO DAILY ketorolac 30 mg IM Q4-6H PRN syringe with needle As directed HPI HPI 3 week deep per nurse: Details: Patient is here for chlamydia test of cure visit she just finished the medication last Thursday. She is awaiting preop clearances for colonoscopy and endoscopy and breast revision surgery as well so she has a lot of medical visits coming up she and her both took the medicine the doxy Cyclen she said that she checked with the pharmacist and crush the medication in applesauce because she is not able to swallow solids. She got a period on Thursday and it is still moderately heavy. She does not contraceptive. She said she has not had intercourse since the treatment and I recommend waiting as long as possible.. PFS Medical History Annual physical exam Normal Pap smear Hypermobile joint syndrome of multiple sites Obese Hyperlipemia Fibromyalgia Lumbar degenerative disc disease Achalasia Carpal tunnel syndrome Migraine headache Surgical History Hx of cosmetic surgery History of tonsillectomy and adenoidectomy Hx of section Hx of cholecystectomy History of appendectomy Family History Father No problems noted. Mother No problems noted. Daughter Short-term memory loss Learning disability Son Premature Son Learning disability Autism Social History Household Members: Spouse and Children Housing: House Are you a primary child care worker to a significant other at home: Yes Do you presently have visiting nurse or other home services: No Alcohol intake: never Patient Tobacco Use Status: Never used Tobacco e-Cigarette/Vaping Use: Never Used service: No Current occupational status: employed Cognitive needs: No Hearing needs: No Vision needs: Yes (Glasses) Female Reproductive History Menstrual Age of Menarche: 15 Total pregnancies: 3 Full term: 1 Premature: 2 Physical Exam Vital Signs: Last Vital Signs BP 120/72 06/27/25 12:05 BMI result Body Mass Index 45.3 Chest Other: Visual inspection of her previously open wounds on her breasts a demonstrate that they appeared to have closed more especially the 1 on the right which was fairly well open previously. Scar tissue appears intact on both. Other: Speculum exam done moderate menses noted again challenging to visualize cervix secondary to anatomical variations. Swabs taken for gonorrhea chlamydia trichomoniasis bacterial vaginosis and yeast.. Results Reviewed Results Reviewed: Name: Sherie Merino Age/Sex: 45/F Attending: Indira Menendez CNM : 1980 Submitted by: Indira Menendez CNM Copies to: MR #: [id number] Status: [facility] REF Collected: 06/08/25 Location: [facility] Received: 06/09/25 Interpretation Satisfactory for evaluation. Negative for intraepithelial lesion or malignancy. No endocervical cells seen. Coccobacilli consistent with shift in vaginal otilia. HPV High Risk: Negative HPV Genotyping 16: Negative HPV Genotyping 18: Negative Clinical Information LMP: 05/02/2025 Previous PAP test: Unknown date, abnormal Other history: Encounter for annual routine gynecological examination Material Received ThinPrep-Cervical Electronically Signed By: LYRIC Martinez (ASCP) 06/14/25 0953 As of June 22, 2024, the technical services to include automated prescreening performed by the ThinPrep Imaging System, PAP screening and HPV testing will be performed at [facility] (CLIA #[id number]), [address] [place] [address]. Testing for HPV was performed using the Phu CHANDRAKANT 6800 system. The presence of HPV in the female genital tract is associated with a number of diseases, including cervical carcinoma. The HPV DNA high risk pool tests for HPV 31, 33, 35, 39, 45, 51, 52, 56, 58, 59, 66 and 68. The testing for HPV 16 and 18 genotypes has also been performed. A positive result indicates detection of nucleic acid sequences from one or more subtypes, whereas a negative result indicates such sequences were not detected. All professional services are performed by [facility] ([address] [place] [address]; ; CLIA #[id number]). The PAP Test is a screening procedure with the inherent possibility of both false negative and false positive results. Results should be interpreted in the context of historic and current clinical findings. Reliability of the PAP Test is enhanced by performing the test on a regular repetitive basis. Patient: Sherie Merino Age/Sex: 45/F MR#: [id number] Page 1 of 1 Name: Sherie Merino Age/Sex: 45/F : 1980 Unit#: [id number] Attend Dr: Indira Menendez CNM Re06/08/25 Status: DEP REF Location: .LAB Disch: SPEC : [id number] HARSH: 06/08/25 STATUS: COMP REQ : [id number] RECD: 06/08/[address]: Indira Menendez CNM COMP: 06/08/25 ENTERED: 06/08/25 [facility] DR: Erick StapletonC ORDERED: CT NG Vag/Cerv Test Result Flag Reference CT PCR DETECTED A Not Detect. Detected results may be observed after successful antibiotic treatment due to target nucleic acids from residual non-viable chlamydia. As with many diagnostic tests, results from the Xpert CT/NG assay should be interpreted in conjunction with other laboratory and clinical data available to the clinician. Xpert CT/NG performance has not been evaluated in patients less than 14 years of age. The assay should not be used for the evaluation of suspected sexual abuse or for other medico-legal indications. Additional testing is recommended in any circumstance when false positive or false negative results could lead to adverse medical, social or psychological consequences. These results must be reported by the ordering clinician or clinical facility to the [facility] as required by state law. NG PCR NOT DETECTED Not Detect. A not detected test result does not exclude the possibility of infection because test results can be affected by improper specimen collection, concurrent antibiotic therapy, or the number of organisms in the specimen which may be below the sensitivity of the test. As with many diagnostic tests, results from the Xpert CT/NG assay should be interpreted in conjunction with other laboratory and clinical data available to the clinician. Xpert CT/NG performance has not been evaluated in patients less than 14 years of age. The assay should not be used for the evaluation of suspected sexual abuse or for other medico-legal indications. Additional testing is recommended in any circumstance when false positive or false negative results could lead to adverse medical, social or psychological consequences. Assessment & Plan Assessment & Plan (1) Screening for malignant neoplasm of cervix: Comment: 06/08/2025 Pap is negative with negative HPV. Code(s): Z12.4 - Encounter for screening for malignant neoplasm of cervix Category: Medical (2) Chlamydia infection: Comment: From 06/08 25 routine testing. Patient and her partner need treatment and counseling and she needs a test of cure. Code(s): A74.9 - Chlamydial infection, unspecified Category: Medical (3) Screen for sexually transmitted diseases: Code(s): Z11.3 - Encounter for screening for infections with a predominantly sexual mode of transmission Category: Medical Plan Testing done for the chlamydia as well as testing for other STIs. I recommend that she and her avoid unprotected intercourse for as long as possible to allow for complete resolution of the chlamydia in both before allowing for any possible ping ponging of infection, as they just finished the medication on Thursday. I offered and suggested getting HIV hepatitis B hep C and syphilis testing as she has not had it done in years she said her just got it done ordered by his doctor as well. She said they talked about the infection. She will be getting lots of lab work and part of her preop evaluation and checking on her anemia so she can get all of her labs done together. Orders: Orders Syphilis Screen Today A74.9 - Chlamydial infection, unspecified, Z11.3 - Encounter for screening for infections with a predominantly sexual mode of transmission, Z12.4 - Encounter for screening for malignant neoplasm of cervix Hepatitis B Surface Antigen Today A74.9 - Chlamydial infection, unspecified, Z11.3 - Encounter for screening for infections with a predominantly sexual mode of transmission, Z12.4 - Encounter for screening for malignant neoplasm of cervix Hepatitis C Antibody Today A74.9 - Chlamydial infection, unspecified, Z11.3 - Encounter for screening for infections with a predominantly sexual mode of transmission, Z12.4 - Encounter for screening for malignant neoplasm of cervix HIV Ab/Ag Today A74.9 - Chlamydial infection, unspecified, Z11.3 - Encounter for screening for infections with a predominantly sexual mode of transmission, Z12.4 - Encounter for screening for malignant neoplasm of cervix Coding Level of Care Code Est Pt Level 3 (25676) Diagnoses Screening for malignant neoplasm of cervix Z12.4 Chlamydia infection A74.9 Screen for sexually transmitted diseases Z11.3
[2025-06-27 12:05] VITALS: BP 120/72; BMI 45.3
--- OUTSIDE RECORDS SUMMARY | 2025-06-27 15:02 | XMS_ITS | Clinical Summary ---
Author Organization [facility] Address [address] [employer] [address] [address] Phone Care Team Providers Care Car Stereo Installer Name Role Phone Stephen Whalen DO Primary Care Provider [phone] Diallo Chavez MD Unavailable [phone] Allergies Active Allergy Reactions Criticality Noted Date [...] (#1) 2025 09/30/2017 COVID-19 VACCINE (1 - 2024-2 6 season) 2025 SMOKING STATUS SCREENING (On ce [...] this topic Medical Devices Implanted Type Area Semiconductor Package Symbol Stamper Device Identifier Shelf Expiration Date Model / Serial / Lot Clip Internal [id number] Hemo Git Instinct Bx/10ea - [id number] Implanted:Qty: 4 on 08/20/2017 by Darshan Kent MD at [facility] [employer] 01/29/2020 [id number] / / [id number] Clip Internal [id number] Hemo Git Instinct Bx/10ea - [id number] Implanted:Qty: 4 on 08/20/2017 by Darshan Kent MD at [facility] [employer] 01/28/2020 [id number] / / [id number] Insurance [employer] NON NSPG PCP SILVER [employer]AR[employer] [place] [address] [place] [address] NON NSPG PCP SIL[employer] CONNE[employer] NON NSPG PCP SILVER [employer] CONNE[employer]CARE [employer] NON NSPG PCP SILVER CLARITY CONNECTORCARE [facility] NON NSPG PCP SILVER CLARITY CONNECTORCARE [employer] NON NSPG PCP SIL[employer] NON NSPG PCP [employer] NON NSPG PCP [employer]IL[employer] NON NSPG PCP SIL[employer]AR[employer] CONNECTORCARE Advance Directives For more information, please contact: [phone] (9AM - 5PM [place], Thursday-Thursday) * Full Code (Presumed) (Latest Code Status on File) Date Activated Date Inactivated Comments 08/20/2017 7:38 PM 08/21/2017 12:50 PM Care Teams Car Stereo Installer Relationship Specialty Start Date End Date Stephen Whalen DO [address] [place] [address] PCP - General Internal Medicine 08/13/17 Diallo Chavez MD [address] [place] [address] [place] [address] Gastroenterology 04/23/18 Additional Source Comments The information contained in this document represents components of the legal health record. It is not the complete legal health record.[facility]
--- OUTSIDE RECORDS SUMMARY | 2025-06-27 15:02 | XMS_ITS | Encounter Summary ---
Author Organization [facility] Address [address] [place] [address] Phone Care Team Providers Care Electrical And Electronic Assembler Name Role Phone Stephen Whalen DO Primary Care Provider [phone] Stephen Whalen DO Primary Care Provider [phone] Diallo Chavez MD Unavailable [phone] Encounter Details Date Type Department Care Team (Late st Contact Info) Description 12/10/2015 Transcribe Orders [facility] [address], [address] [place] [address], [address] Floor, [address] [place] [address] Tommy Figueroa, [facility] [address] [place] [address] [email or web address] Social History Tobacco Use Types Packs/Day Years [...] on filedocumented in this encounter Care Teams Electrical And Electronic Assembler Relationship Specialty Start Date End Date Stephen Whalen DO [address] [place] [address] PCP - General Internal Medicine 05/29/15 03/24/17 Stephen Whalen DO [address] [place] [address] PCP - General Internal Medicine 08/13/17 Diallo Chavez MD [address] [place] [address] Drive [address] [place] [address] Gastroenterology 04/23/18 documented as of this encounter Additional Source Comments The information contained in this document represents components of the legal health record. It is not the complete legal health record.[facility]
--- OUTSIDE RECORDS SUMMARY | 2025-06-27 15:02 | XMS_ITS | Encounter Summary ---
Author Organization [facility] Address [address] [facility] [address] [place] [address] Phone Care Team Providers Care Bolt Man Name Role Phone Setphen Whalen DO Primary Care Provider [phone]- [phone] Diallo Chavez MD Unavailable [phone] Encounter Details Date Type Department Care Team (Late st Contact Info) Description 08/20/2017 Procedure Pass [facility] PERIOPERATIVE DEPT [address] [place] [address] Social History Tobacco Use Types [...] on filedocumented in this encounter Care Teams Bolt Man Relationship Specialty Start Date End Date Stephen Whalen DO [address] [place] [address] PCP - General Internal Medicine 08/13/17 Diallo Chavez MD [address] [place] [address] Gastroenterology 04/23/18 documented as of this encounter Additional Source Comments The information contained in this document represents components of the legal health record. It is not the complete legal health record.[facility]
--- OUTSIDE RECORDS SUMMARY | 2025-06-27 15:03 | XMS_ITS | Patient Health Record ---
Author Organization [place] [facility] Address [address] [place] [address] Care Team Providers Care Process Manager Name Role Phone Erick Stapleton N.P. Primary Care Provider Diallo Gray Unavailable [phone] Allergies Allergen (clinical drug ingredient) Drug/Non Drug [...] a day to prevent abdominal cramps and diarrhea; Duration: 30 days 04/30/2022 Active Omeprazole 20 MG Open 1 capsule and put in applesauce Orally Once a day; Duration: 30 day(s) 12/06/2020 Not-Taking Hyoscyamine Sulfate 0.125 MG 1-2 Sublingual every 4 hours as needed for abdominal pain/cramps; Duration: 30 days IBS 04/10/2016 Active Iron 18 MG/15ML 15 mL mixed with water or juice Orally Once a day Active Prevacid SoluTab 30 MG 1 tablet dissolved in mouth Orally Once a day; Duration: 30 day(s) 12/04/2020 Not-Taking Vitamin B-12 3000 MCG/ML as directed Sublingual Active Omeprazole 2 MG/ML 10 ml Orally Once a day; Duration: 30 day(s) 11/27/2020 Not-Taking Omeprazole 20 MG 1 Orally Every morning; Duration: 30 day(s) 09/08/2023 Active Imodium A-D 2 MG 1 or 2 tablets Orall y Take before each meal three times a day to prevent abdominal cramps and diarrhea; Duration: 30 days 04/30/2022 Active Promethazine HCl Act [...] Problem Status W/U Status Risk Notes Problem Abdominal bloating (136620088) Abdominal bloating (R14.0) Active confirmed Problem Generalized abdominal pain (917446395) Generalized abdominal pain (R10.84) Active confirmed Problem Dysphagia (60579079) Dysphagia (R13.10) Active confirmed Problem Irritable bowel syndrome (62959239) IBS (irritable bowel syndrome) (K58.9) Active confirmed Problem Iron deficiency anemia (25794979) Iron deficiency anemia (D50.9) Active confirmed Problem Achalasia (46090575) Achalasia (K22.0) Active confirmed Problem Gastroesophageal reflux disease (799775854) GERD (gastroesophag eal reflux disease) (K21.9) Active [...] N/A Encounters Encounter Location Date Provider Diagnosis [facility] [address] [place] [address] 04/26/2025 Diallo Chavez Achalasia K22.0 ; GERD (gastroesophageal reflux disease) K21.9 ; Dysphagia R13.10 ; IBS (irritable bowel syndrome) K58.9 and Iron deficiency anemia D50.[address] [facility] [address] [place] [address] 06/27/2025 Diallo Chavez Assessments Encounter Date Diagnosis (ICD Code) Assessment [...] COLONOSCOPY 04/26/2025 Next Appt Details Provider Name:Diallo Chavez , 07/24/2025 08:30:00 AM, [address] [facility] , [place], [place], [id number], Insurance Providers Payer Name Payer Address Payer Phone Subscriber Number Group Number Insured Name Patient Relationship to Insured Coverage Start Date Coverage End Date MEDICAID OF [facility] [address] [place] [id number] SHERIE LARRY Self - patient is the insured Medical (General) History Medical History History ICD Code Achalasia treated with a loli gical Heller myotomy in [place] in 2003- last EGD was in 08/2010-no retained food nor obstruction- saw Dr. Rekha Martinez from Thoracic surgery in 2010-did not feel that surgery was needed at that time- saw Dr. Katz at [facility] in 03/2014-had a Barium swallow and esophageal motility study- no surgery recommended. She did followup with Dr. Katz and Dr. Lambert at [facility] in 2014 but did not have any surgery nor POEM procedure done. We are trying to get her an appointment to see Dr. Qiu at [facility] for spring. She did see Dr. Qiu in 11/2015- had a Barium swallow and CT scan- he needs to do an EGD and then decide about any possible treatment for the Achalasia. She has been followed by Dr. Qiu, Dr. Mccray(Lapaoscopic surgeon) and Dr. Kent(Bariatric surgeon) at [facility]- going back there in 07/2017 for F/U and to try to set up a POEM procedure. She reports an attempted EGD with POEM by Dr. Mccray in spring- -they were unable to do the POEM due to difficulty with the esophageal anatomy. Dr. Mccray has recommended an esophagectomy at some point. After 2017 no other intervention due to problems with her insurance. She has been seeing Dr. Blevins at [facility] since 2019 Headaches Denies DC,DM,CVA,Lung disease,renal dise ase Vitamin D deficiency Fibromyalgia/Hypermobility of the bones Regarding her achalasia, she has most recently been followed by Dr. Blevins at [facility] since May of 2020- she has undergone an upper endoscopy with a 20 mm Savory dilation by Dr. Blevins, as well as a barium swallow- - the main issue with Sherie's swallowing seems to be related to the poorly functioning and tortuous lower esophagus, as opposed to the lower esophageal sphincter- Dr. Blevisn seems to think that the only real [...] Date(Month/Year) Abdominoplasty Appendectomy 02/05/2015- Dr. Aguilar at [facility] in 10/[address] Barnes Heller myotomy as above- 2003 in [place]
== END 2025-06-27 13:53 | disposition home or self-care (01) ==
LOC: HO.HWSM 11:42
PROVIDERS: Visit Provider Advanced Practice Midwife
DX: Z12.4 Encounter for screening for malignant neoplasm of cervix (principal); A74.9 Chlamydial infection, unspecified; Z11.3 Encounter for screening for infections with a predominantly sexual mode of transmission
CPT/HCPCS: 99213

== ENCOUNTER 2025-07-13 11:48 | Outpatient (REF) | payer OTHER, SELFPAY ==
[2025-07-13 12:09] LABS: MANUAL DIFF FLAG NO
[2025-07-13 12:22] LABS: Hematocrit 44.7 % (37.0-47.0); Hemoglobin 14.7 g/dl (12.0-16.0); Imm Gran Abs Auto 0.03 X10*3/uL (0.00-0.03); Imm Gran Pct Auto 0.3 % (0.0-0.4); Lymphocytes Absolute Auto 2.7 X10*3/uL (1.2-4.9); Mean Corpuscular HGB Conc 32.9 g/dl (31.0-35.0); Mean Corpuscular Hemoglobin 29.7 pg (27.0-33.0); Mean Corpuscular Volume 90.3 fL (80.0-98.0); NRBC Abs Auto 0.000 X10*3/uL (0.0-0.012); NRBC Pct Auto 0.0 /100WBC (0.0-0.2); Platelet Count 329 X10*3/uL (160-400); Red Blood Count 4.95 X10*6/uL (4.20-5.50); White Blood Count 9.2 X10*3/uL (4.8-10.8)
[2025-07-13 12:58] LABS: Alanine Aminotransferase 18 U/L (0-31); Albumin Level 4.3 g/dL (3.5-5.0); Alkaline Phosphatase 90 U/L (39-117); Anion Gap 11 (12-20); Aspartate Amino Transferase 20 U/L (5-31); Blood Urea Nitrogen 10 mg/dL (9-16); Calcium 9.2 mg/dL (8.4-10.2); Carbon Dioxide 27 mmol/L (22-29); Chloride 106 mmol/L (96-108); Estimated Glomerular Filt Rate > 60; Potassium 4.0 mmol/L (3.3-5.1); Sodium 140 mmol/L (135-145); Total Protein 7.5 g/dL (6.5-8.0)
[2025-07-13 13:12] LABS: Ferritin 119 ng/mL (10-250)
[2025-07-13 13:13] LABS: HBsAGNum1 0.44 S/CO (0.00-0.99); HIV Num 1 0.05 S/CO (0.00-0.99); Hepatitis B Surface Antigen Negative (Negative); Syphilis Screen Nonreactive (Nonreactive); ~HepC Num1 0.11 S/CO (0.00-0.79); ~Hepatitis C Antibody Nonreactive (Nonreactive)
--- OUTSIDE RECORDS SUMMARY | 2025-07-13 15:02 | XMS_ITS | Encounter Summary ---
Author Organization [facility] Address [address] [place] [address] Phone Care Team Providers Care Clinical Transformation Specialist Name Role Phone Stephen hWalen DO Primary Care Provider [phone] Stephen Whalen DO Primary Care Provider [phone] Diallo Chavez MD Unavailable [phone] Encounter Details Date Type Department Care Team (Late st Contact Info) Description 12/10/2015 Transcribe Orders [facility] [place] CT, [address] [place] [address], [address] Floor, [address] [place] [address] Tommy Figueroa, [facility] [address] [place] [address] [email or web address] Social History Tobacco Use Types Packs/Day [...] on filedocumented in this encounter Care Teams Clinical Transformation Specialist Relationship Specialty Start Date End Date Stephen Whalen DO [address] [place] [address] PCP - General Internal Medicine 05/29/15 03/24/17 Stephen Whalen DO [address] [place] [address] PCP - General Internal Medicine 08/13/17 Diallo Chavez MD [address] [place] [address] Drive [address] [place] [address] Gastroenterology 04/23/18 documented as of this encounter Additional Source Comments The information contained in this document represents components of the legal health record. It is not the complete legal health record.[facility]
--- OUTSIDE RECORDS SUMMARY | 2025-07-13 15:02 | XMS_ITS | Clinical Summary ---
Author Organization [facility] Address [address] [address] Phone Care Team Providers Care Rn Managed Care Name Role Phone Stephen Whalen DO Primary Care Provider [phone] Diallo Chavez MD Unavailable [phone] Allergies Active Allergy Reactions Criticality Noted Date [...] YEARS) 1996 PAP SMEAR 1999 MAMMOGRAM 2018 PNEUMOCOCCAL VACCINES (0-49 years) (2 of 2 - PCV) 04/12/2019 04/12/2018 COLOGUARD 2023 COLONOSCOPY 2023 COLORECTAL CANCER SCREENING 2023 FIT TEST 2023 FOBT 2023 SIGMOIDOSCOPY 2023 VIRTUAL COLONOSCOPY 2023 INFLUENZA VACCINE (#1) 2025 09/30/2017 COVID-19 VACCINE (1 - 2024-2 6 season) 2025 SMOKING STATUS SCREENING (On ce After 26 Yrs) Completed 08/12/2017 HEPATITIS A VACCINES Aged Out No long er eligible based on patient's age to complete this topic HIB VACCINES Aged Out No longer eligi ble based on patient's age to complete this topic IPV VACCINES Aged Out No longer eligi ble based on patient's age to complete this topic MENINGOCOCCAL VACCINES (ACWY) Aged Out No longer eligible based on patient's age to complete this topic MENINGOCOCCAL VACCINES (B) Aged Out N o longer eligible based on patient's age to complete this topic Medical Devices Implanted Type Area Tobacco Classer Device Identifier Shelf Expiration Date Model / Serial / Lot Clip Internal [id number] Hemo Git Instinct Bx/10ea - [id number] Implanted:Qty: 4 on 08/20/2017 by Darshan Kent MD at [facility] [employer] 01/29/2020 [id number] / / [id number] Clip Internal [id number] Hemo Git Instinct Bx/10ea - [id number] Implanted:Qty: 4 on 08/20/2017 by Darshan Kent MD at [facility] [employer] 01/28/2020 [id number] / / [id number] Insurance NON NSPG PCP [employer] NON NSPG PCP [employer] [address] [place] [address]ENSE NON NSPG PCP [employer] [address] [place], [place] [address]ENSE NON NSPG PCP [employer] [address] NON NSPG PCP [employer] NON NSPG PCP [employer] [address] [place], [place] [address]ENSE NON NSPG PCP [employer] CONNE[employer] NON NSPG PCP [employer] NON NSPG PCP [employer] Advance Directives For more information, please contact: [phone] (9AM - 5PM [place], Thursday-Thursday) * Full Code (Presumed) (Latest Code Status on File) Date Activated Date Inactivated Comments 08/20/2017 7:38 PM 08/21/2017 12:50 PM Care Teams Rn Managed Care Relationship Specialty Start Date End Date Stephen Whalen DO [address] [place] [address] PCP - General Internal Medicine 08/13/17 Diallo Chavez MD [address] [place] [address] Gastroenterology 04/23/18 Additional Source Comments The information contained in this document represents components of the legal health record. It is not the complete legal health record.[facility]
--- OUTSIDE RECORDS SUMMARY | 2025-07-13 15:02 | XMS_ITS | Encounter Summary ---
Author Organization [facility] Address [address] [facility] [facility] [address] [place] [address] Phone Care Team Providers Care Electronic Plotting System Operator Name Role Phone Stephen Whalen DO Primary Care Provider [phone] Diallo Chavez MD Unavailable [phone] Encounter Details Date Type Department Care Team (Late st Contact Info) Description 08/20/2017 Procedure Pass [facility] PERIOPER[facility]IVE [facility]PT [address] [place] [address] Social History Tobacco Use Types [...] on filedocumented in this encounter Care Teams Electronic Plotting System Operator Relationship Specialty Start Date End Date Stephen Whalen DO [address] [place] [address] PCP - General Internal Medicine 08/13/17 Diallo Chavez MD [address] [place] [address] Gastroenterology 04/23/18 documented as of this encounter Additional Source Comments The information contained in this document represents components of the legal health record. It is not the complete legal health record.[facility]
--- OUTSIDE RECORDS SUMMARY | 2025-07-13 15:02 | XMS_ITS | Patient Health Record ---
Author Organization [facility] Address [address] [place] [address] Care Team Providers Care Trust Administrative Assistant Name Role Phone Erick Stapleton N.P. Primary Care Provider Diallo Gray Unavailable [phone] Allergies Allergen (clinical drug ingredient) Drug/Non Drug Allergy documented on EMR Reaction Allergy Type Onset Date Status diphenhydramine benadryl (uncoded) Unknown Allergy Active Reason For Referral Referring Provider First Name Erick Referring Provider Last Name Pieter Referred Organization [facility] Referred Provider Diallo Chavez Referred Address [address],[place], [place],[address], Referred Provider Specialty Gastroentero logy General Notes Bernadette Charles 2024 04:13:59 PM > requested a [facility] referral from [facility] for visit with Dr. Chavez on 07-24-2025 ( left voice message), Bernadette Charles 07/11/2025 07:29:04 AM >PT NOW HAS [facility] THE PRIMARY INSURANCE Referral Priority Routine Medications Medication SIG (Take, Route, Frequency, Duration) [...] W/U Status Risk Notes Problem Abdominal bloating (627731237) Abdominal bloating (R14.0) Active confirmed Problem Generalized abdominal pain (729841631) Generalized abdominal pain (R10.84) Active confirmed Problem Dysphagia (59333048) Dysphagia (R13.10) Active confirmed Problem Irritable bowel syndrome (76150240) IBS (irritable bowel syndrome) (K58.9) Active confirmed Problem Iron deficiency anemia (16997832) Iron deficiency anemia (D50.9) Active confirmed Problem Achalasia (59350096) Achalasia (K22.0) Active confirmed Problem Gastroesophageal reflux disease (667057820) GERD (gastroesophag eal reflux disease) (K21.9) Active [...] N/A Encounters Encounter Location Date Provider Diagnosis [facility] [address] [place] [address] 04/26/2025 Diallo Chavez Achalasia K22.0 ; GERD (gastroesophageal reflux disease) K21.9 ; Dysphagia R13.10 ; IBS (irritable bowel syndrome) K58.9 and Iron deficiency anemia D50.9 [facility] [address] [place] [address] 06/27/2025 Diallo Chavez Assessments Encounter Date Diagnosis [...] Provider Name:Diallo Chavez , 07/24/2025 08:30:00 AM, [address] [place] [address] , [place], [place], [id number], Insurance Providers Payer Name Payer Address Payer Phone Subscriber Number Group Number Insured Name Patient Relationship to Insured Coverage Start Date Coverage End Date [employer] [facility] [address] [address] [place], [place] [id number] SHERIE LARRY Self - patient is the insured MEDICAID OF [place] [address] [place] [address] [id number] SHERIE LARRY Self - patient is the insured Medical (General) History Medical History History ICD Code Achalasia treated with a loli gical Heller myotomy in [place] in 2003- last EGD was in 08/2010-no retained food nor obstruction- saw Dr. Rekha Martinez from Thoracic surgery in 2010-did not feel that surgery was needed at that time- saw Dr. Katz at [facility] in 03/2014-had a Barium swallow and esophageal motility study- no surgery recommended. She did followup with Dr. Katz and Dr. Lambert at [facility] in 2014 but did not have any surgery nor POEM procedure done. We are trying to get her an appointment to see Dr. Qiu at [facility] for spring. She did see Dr. Qiu in 11/2015- had a Barium swallow and CT scan- he needs to do an EGD and then decide about any possible treatment for the Achalasia. She has been followed by Dr. Qiu, Dr. Mccray(Lapaoscopic surgeon) and Dr. Kent(Bariatric surgeon) at [facility]- going back there in 07/2017 for F/U [...] She has been seeing Dr. Blevins at [facility] since 2019 Headaches Denies CO,DM,CVA,Lung disease,renal dise ase Vitamin D deficiency Fibromyalgia/Hypermobility of the bones Regarding her achalasia, she has most recently been followed by Dr. Blevins at [facility] since May of [...] Date(Month/Year) Abdominoplasty Appendectomy 02/05/2015- Dr. Aguilar at [facility] in 10/[address] Barnes Heller myotomy as above- 2004 in [place]
== END 2025-07-13 11:49 | disposition home or self-care (01) ==
LOC: HO.LAB 11:48
PROVIDERS: Absent Provider Nurse Practitioner Family; Visit Provider Advanced Practice Midwife
DX: Z12.4 Encounter for screening for malignant neoplasm of cervix (principal); Z11.4 Encounter for screening for human immunodeficiency virus [HIV]; Z20.6 Contact with and (suspected) exposure to human immunodeficiency virus [HIV]; Z11.59 Encounter for screening for other viral diseases; Z11.3 Encounter for screening for infections with a predominantly sexual mode of transmission; A74.9 Chlamydial infection, unspecified; D64.9 Anemia, unspecified
CPT/HCPCS: 36415; 80053; 82728; 85025; 86780; 86803; 87340; 87389

== ENCOUNTER 2025-07-18 13:28 | Outpatient (AMB) | payer OTHER, SELFPAY ==
--- NOTE | 2025-07-18 13:48 | A.OFFPC_ITS ---
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 Accompanied by: Self / Same As Patient Allergies Benadryl Allergy (Severe, Verified 07/18/25 13:53) angioedema, facial swelling, facial itching hard water and soap Allergy (Severe, Uncoded 07/10/25 10:24) rash Tobacco use date assessed: 07/18/25 Dental Screening Dental Screen Date: 07/18/25 Did you have a dental visit in the last 12 months?: Yes Did you have a dental problem in the last 6 months where you did not have access to dental care?: No Was dental information given to patient?: Patient has dentist HPI 07/31 yohana aguilar HPI Details Patient is a 45 old female with past medical history of migraine headac hes, achalasia, fibromyalgia, hyperlipidemia, obesity, hypermobile joint syndrome of multiple sites, anemia The patient is scheduled to have a revision of her prior abdominoplasty and breast augmentation with Darian Toro at [facility]. Date: 07/31/2025 Patient reports having surgery done in the past under generalized anesthesia without any issues. The patient takes ketorolac 30 mg IM q.4 to 6 p.r.n. for migraines. Instructed the patient to hold this medication for at least 48 hours before surgery. The patient denies any postoperative hypothermia or clotting disorder the patient is not on any blood thinners. EKG done in office shows sinus rhythm with possible inferior infarct in AVF with nonspecific ST changes in lead lll. The patient is symptomatic, and is optimized for surgery, we will do a baseline echocardiogram in the future. The patient denies chest pain, shortness of breath, heart palpitation or dizziness test will be done on the BY OBGYN. [facility] Medical History Anemia Environmental allergies Seasonal allergies Dysphagia GERD (gastroesophageal reflux disease) Diarrhea Irritable bowel syndrome (IBS) Iron deficiency anemia Annual physical exam Normal Pap smear Hypermobile joint syndrome of multiple sites Obese Hyperlipemia Fibromyalgia Lumbar degenerative disc disease Achalasia Carpal tunnel syndrome Migraine headache Surgical History History of esophagogastroduodenoscopy (EGD) (2023) Hx of abdominoplasty History of surgery (2003) Hx of cosmetic surgery History of tonsillectomy and adenoidectomy Hx of section Hx of cholecystectomy (10/2011) History of appendectomy (02/05/15) Family History Father No problems noted. Mother No problems noted. 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 (children) Do you presently have visiting nurse or other home services: No Alcohol intake: never Patient Tobacco Use Status: Never used Tobacco e-Cigarette/Vaping Use: Never Used service: No Current occupational status: employed Cognitive needs: No Hearing needs: No Vision needs: Yes (Glasses) Female Reproductive History Menstrual Age of Menarche: 15 Questionnaire Thrive Questionnaire Date Thrive assessed: 07/18/25 I am a: Patient What is your living situation today?: I have a steady place to live Within the past 12 months, did the food you bought not last and you didn't have the money to get more?: Often true Within the past 12 months, did you worry whether your food would run out before you got money to buy more?: Never true Do you have trouble paying for medicines?: No Do you have trouble getting transportation to medical appointments?: No Do you have trouble paying your heating and electricity bill?: No Do you have trouble taking care of your child, family member or friend?: No Do you have trouble with day-to-day activities such as bathing, preparing meals, shopping, managing finances, etc.?: No Are you currently unemployed and looking for a job?: No Are you interested in more education?: No Please select the resources that you would like help with: None Currently or been in a relationship where the following occur: No concerns reported THRIVE Score: 1 AUDIT C Alcohol Use Questionnaire (AUDIT-C) 1. How often do you have a drink containing alcohol?: Never Total Score: 0 Score Reviewed/Action Taken: No LEEANNA-7 AMB Questionnaire LEEANNA-7 Date LEEANNA - 7 assessed: 02/09/25 Source: Developed by Drs. Diallo Zuleta, Sandra Arana, Henry Narayan and colleagues, with an educational jose from [employer]. Review of Systems Const Reports headache(s) (Chronic-improve on treatment) Eyes Denies loss of vision ENT Denies vertigo, Denies dizziness, Reports headache(s) (Chronic-improve on treatment) and Denies sore throat Card Denies chest pain, Denies leg edema and Denies lightheadedness Resp Denies cough, Denies hemoptysis and Denies wheezing GI Denies abdominal pain, Denies melena, Denies constipation, Denies diarrhea and Denies vomiting Denies urinary frequency, Denies dysuria and Denies urinary urgency Musc Denies arthralgias, Denies joint swelling, Denies numbness, Denies tingling and Reports other (crepitus sounds in bilateral knees with no pain due to high pain tolerance) Skin/Breast Reports rash (recurrent ezcema appearing rash to face) Neuro Denies Abnormal speech present, Denies behavioral changes, Denies vertigo, Denies dizziness, Reports headache(s) (Chronic-improve on treatment), Denies loss of vision, Denies memory loss, Denies numbness and Denies tingling Psych Denies anxiety, Denies behavioral changes, Denies depression, Denies memory loss and Denies panic attacks Ced/Lymph Denies easy bleeding and Denies easy bruising Aller/Immun Denies wheezing Physical exam (Primary Care) Vital Signs: Last Vital Signs Temp 97.3 F 07/18/25 13:53 Pulse 94 07/18/25 13:53 Resp 18 07/18/25 13:53 BP 102/62 07/18/25 13:53 Pulse Ox 99 07/18/25 13:53 Oxygen Delivery Method Room Air 07/18/25 13:53 BMI result Body Mass Index 44.7 Tobacco/Smoking Status: Tobacco use Status Tobacco use date assessed 07/18/25 07/18/25 14:11 Patient Tobacco Use Status Never used Tobacco 07/18/25 13:48 e-Cigarette/Vaping Use Never Used 07/18/25 13:48 Thrive Assessment: Date of Thrive Assessment Date Thrive assessed 07/18/25 07/18/25 14:11 Currently or been in a relationship where the following occur: No concerns reported Const General: healthy appearing, no acute distress, alert and awake Nutritional Appearance: well nourished Orientation/consciousness: oriented to person, oriented to place and oriented to time HENMT Ears: TM's normal bilaterally General nose exam: Normal nasal mucous membranes and turbinates present Eyes Conjunctivae: conjunctivae normal Sclerae: sclerae normal Pupils: Equal, round and reactive pupils present Neck Neck: Yes no lymphadenopathy and Yes no JVD Thyroid: Thyroid normal Carotids: no bruits Resp Effort & Inspection: normal respiratory effort and not tachypneic Auscultation: no crackles, no rales, no rhonchi and no wheezes Cardio Rate: regular rate Rhythm: regular rhythm Heart sounds: no murmurs and normal S1 and S2 GI Palpation (GI): Soft to palpation, nontender, no hepatomegaly and no splenomegaly Auscultation: normal bowel sounds Skin General skin exam: no rashes or lesions noted and dry skin Neuro General: oriented to person, oriented to place and oriented to time Cranial nerves: Yes Equal, round and reactive pupils present Speech: No Abnormal speech present Gait exam (Neuro): Normal gait present Motor exam (neuro): no tremor noted Extrem Right upper extremity: full ROM Left upper extremity: full ROM Right lower extremity: full ROM; no edema Left lower extremity: full ROM; no edema Psych Mental Status: mental status grossly normal Speech and movement: Normal speech and movement present Affect: normal affect Attitude: cooperative Thought process: Normal thought process present Results Reviewed Results Reviewed: Laboratory Tests 07/13/25 12:08 WBC 9.2 RBC 4.95 Hgb 14.7 Hct 44.7 MCV 90.3 MCH 29.7 MCHC 32.9 RDW 14.0 Plt Count 329 D Sodium 140 Potassium 4.0 Chloride 106 Carbon Dioxide 27 Anion Gap 11 L BUN 10 Creatinine 0.67 Estimated GFR > 60 Random Glucose 94 Calcium 9.2 Ferritin 119 Total Bilirubin 1.0 AST 20 ALT 18 Alkaline Phosphatase 90 Total Protein 7.5 Albumin 4.3 Coding Level of Care Code Est Pt Level 4 (17393) Diagnoses Preoperative clearance Z01.818 Seasonal allergies J30.2 Crepitus of both knee joints M23.8X1; M23.8X2 Hypermobile joint syndrome of multiple sites M24.80 Hyperlipidemia, unspecified hyperlipidemia type E78.5 Hyperlipidemia type: unspecified Migraine with status migrainosus, not intractable, unspecified migraine type G43.901 Migraine type: unspecified Status migrainosus presence: with status migrainosus Intractability: not intractable Achalasia K22.0 Fibromyalgia M79.7 BMI 45.0-49.9, adult Z68.42 Iron deficiency anemia secondary to inadequate dietary iron intake D50.8 Anemia type: iron deficiency Iron deficiency anemia type: inadequate dietary iron intake Time Spent (min) 37 Assessment & Plan Assessment & Plan (1) Preoperative clearance: Code(s): Z01.818 - Encounter for other preprocedural examination Category: Medical Plan: Plan: Recent labs reviewed an EKG was done in office that showed sinus rhythm with possible inferior infarct in AVF and nonspecific ST changes in lead lll. The patient remains optimize for surgery and a follow up echocardiogram we will be done after surgery for baseline assessment. Regarding preop clearance, the patient is at acceptable risk for proposed surgery. Reviewed with the patient that no surgery is completely free of risk and that this examination is to assist the surgeon in reviewing informed consent. . (2) Seasonal allergies: Comment: Patient would like referral to data technician for assessment. Code(s): J30.2 - Other seasonal allergic rhinitis Category: Medical Plan: Limit exposure to allergens Air purifiers and dust filters Air conditioner in house, especially where sleeping (3) Crepitus of both knee joints: Comment: Will order x-ray of bilateral knees. Will refer for to orthopedics. Code(s): M23.8X1 - Other internal derangements of right knee; M23.8X2 - Other internal derangements of left knee Category: Medical Plan: X-rays showed left knee with mild arthritic changes of the lateral joint space Continue ketorolac 30 mg IM Q4-6H prn This medication is going to be held at least 48 hours before procedure (4) Hypermobile joint syndrome of multiple sites: Code(s): M24.80 - Other specific joint derangements of unspecified joint, not elsewhere classified Category: Medical Plan: No pain or injuries noted follow with specialist (5) Hyperlipemia: Code(s): E78.5 - Hyperlipidemia, unspecified Category: Medical Qualifiers: Hyperlipidemia type: unspecified Qualified Code(s): E78.5 - Hyperlipidemia, unspecified Plan: tri 116, t-cho 186, ldl 117, 11/2024 Discussed lifestyle modifications including dietary changes and physical activity (6) Migraine headache: Comment: f/u Dr. Naik Code(s): G43.909 - Migraine, unspecified, not intractable, without status migrainosus Category: Medical Qualifiers: Migraine type: unspecified Status migrainosus presence: with status migrainosus Intractability: not intractable Qualified Code(s): G43.901 - Migraine, unspecified, not intractable, with status migrainosus Plan: Continue ketorolac 30 mg IM q.4 to 6 hours p.r.n. Follow up with Neurology as scheduled (7) Achalasia: Comment: f/u Code(s): K22.0 - Achalasia of cardia Category: Medical Plan: Frequent endoscopy with dilatation Follow up with GI as scheduled (8) Fibromyalgia: Comment: f/u rheumatology [facility] Code(s): M79.7 - Fibromyalgia Category: Medical Plan: Maintain physical activity as tolerated Follow up with rheumatology as scheduled (9) BMI 45.0-49.9, adult: Code(s): Z68.42 - Body mass index [BMI] 45.0-49.9, adult Category: Medical Plan: Encouraged to exercise for at least 30 minutes a day/5 days a week Diet modification as tolerated to promote weight loss Encouraged to increase water intake 6-8 glasses a day (10) Anemia: Code(s): D64.9 - Anemia, unspecified Category: Medical Qualifiers: Anemia type: iron deficiency Iron deficiency anemia type: inadequate dietary iron intake Qualified Code(s): D50.8 - Other iron deficiency anemias Plan: Microcytic, microchromic anemia IV iron infusions ongoing. Patient also is getting B12 injections Follow up with Hematology as scheduled
[2025-07-18 13:53] VITALS: BP 102/62; PULSE 94; RESP 18; TEMP 36.3; O2SAT 99; BMI 44.7
== END 2025-07-18 16:01 | disposition home or self-care (01) ==
LOC: HO.HMCH 13:29
DX: Z01.818 Encounter for other preprocedural examination (principal); J30.2 Other seasonal allergic rhinitis; M23.8X1 Other internal derangements of right knee; M23.8X2 Other internal derangements of left knee; M24.80 Other specific joint derangements of unspecified joint, not elsewhere classified; E78.5 Hyperlipidemia, unspecified; G43.901 Migraine, unspecified, not intractable, with status migrainosus; K22.0 Achalasia of cardia; M79.7 Fibromyalgia; Z68.42 Body mass index [BMI] 45.0-49.9, adult; D50.8 Other iron deficiency anemias

== ENCOUNTER → 2025-07-18 13:28 | Outpatient (BNVA) | payer OTHER, SELFPAY | DX: Z01.818 Encounter for other preprocedural examination (principal); J30.2 Other seasonal allergic rhinitis; M23.8X1 Other internal derangements of right knee; M79.7 Fibromyalgia; G43.909 Migraine, unspecified, not intractable, without status migrainosus; M23.8X2 Other internal derangements of left knee; E78.5 Hyperlipidemia, unspecified; G43.901 Migraine, unspecified, not intractable, with status migrainosus; K22.0 Achalasia of cardia; D50.8 Other iron deficiency anemias; E66.9 Obesity, unspecified; Z68.42 Body mass index [BMI] 45.0-49.9, adult | CPT/HCPCS: 99212 ==

== ENCOUNTER 2025-07-24 07:12 | Day surgery (SDC) | payer OTHER, SELFPAY ==
--- OUTSIDE RECORDS SUMMARY | 2024-01-07 05:20 | XMS_ITS ---
Author Organization [facility] Address [address] [address] Care Team Providers Care [employer] [place] [place] Manager Name Role Phone Erick Stapleton N.P. Primary Care Provider Karen Chavez Diallo Unavailable [phone] REASON FOR VISIT Patient presents today for an office visit f/u for achalasia,IBS,GERD Encounters Encounter Location Date Provider Diagnosis [facility] [address] [address] 01/07/2024 Diallo Chavez Plan Of Treatment Next Appt Details Provider Name:Diallo Chavez , 07/24/2025 09:30:00 AM, [address] [place] [address] , [place], [place], [phone], Progress Notes * JP LARRYINEDOB: 1980 (45 yo F)Acc No.[id number]:01/07/2024 Progress Notes Patient: Kush TREADWELL RICKEY VELÁZQUEZ Provider: Marycarmen Chavez MD :1980 A ge:43 Y S ex:Female Date:01/07/2024 Address:[address] [place], [place] [id number] Pcp:Erick Stapleton N.P. Subjective: * Chief Complaints: [...] 0 01/07/2024 Generated for Sree sheridan/Olga/Xavier on: 0 05/29/2025 12:47 PM EDT
--- OUTSIDE RECORDS SUMMARY | 2025-05-29 12:48 | XMS_ITS | Encounter Summary ---
Author Organization [facility] Address [address] [place] [address] Phone Care Team Providers Care Supervisor Photoengraving Name Role Phone Stephen Whalen DO Primary Care Provider [phone] Diallo Chavez MD Unavailable [phone] Encounter Details Date Type Department Care Team (Late st Contact Info) Description 08/20/2017 Procedure Pass [facility] [address] [place] [address] Social History Tobacco Use Types Packs/Day Years Used Date Smoking Tobacco: Never Smokeless Tobacco: Never Alcohol Use Standard Drinks/Week Comments No 0 (1 standard drink = 0.6 oz pur e alcohol) Comments Unknown Sex and Gender Information Value Date Recorded Sex Assigned at Not on file Legal Sex Female 5:09 PM EDT Gender Identity Not on file Sexual Orientation Not on file documented as of this encounter Plan of Treatment Not on file documented as of this encounter Visit Diagnoses Not on filedocumented in this encounter Care Teams Supervisor Photoengraving Relationship Specialty Start Date End Date Stephen Whalen DO [address] [place] [address] PCP - General Internal Medicine 08/13/17 Diallo Chavez MD [address] [place] [address] Gastroenterology 04/23/18 documented as of this encounter Additional Source Comments The information contained in this document represents components of the legal health record. It is not the complete legal health record.[facility]
--- OUTSIDE RECORDS SUMMARY | 2025-05-29 12:48 | XMS_ITS | Encounter Summary ---
Author Organization [facility] Address [address] [place] [address] Phone Care Team Providers Care Laborer Tin Can Name Role Phone Stephen Whalen DO Primary Care Provider [phone] Stephen Whalen DO Primary Care Provider [phone] Diallo Chavez MD Unavailable [phone] Encounter Details Date Type Department Care Team (Late st Contact Info) Description 12/10/2015 Transcribe Orders [facility] [place], [address] [place] [address], [address], [address] [place] [address] Tommy Figueroa, [facility] [address] [place] [address] [email or web address] Social History Tobacco Use Types Packs/Day Years Used Date Smoking Tobacco: Never Alcohol Use Standard Drinks/Week Comments [...] on filedocumented in this encounter Care Teams Laborer Tin Can Relationship Specialty Start Date End Date Stephen Whalen DO [address] [place] [address] PCP - General Internal Medicine 05/29/15 03/24/17 Stephen Whalen DO [address] [place] [address] PCP - General Internal Medicine 08/13/17 Diallo Chavez MD [address] [place] [address] [address] [place] [id number] Gastroenterology 04/23/18 documented as of this encounter Additional Source Comments The information contained in this document represents components of the legal health record. It is not the complete legal health record.[facility]
--- OUTSIDE RECORDS SUMMARY | 2025-05-29 12:48 | XMS_ITS | Clinical Summary ---
Author Organization [facility] Address [address] [employer] [address] [address] Phone Care Team Providers Care Business Objects Consultant Name Role Phone Stephen Whalen DO Primary Care Provider [phone] Diallo Chavez MD Unavailable [phone] Allergies Active Allergy Reactions Criticality Noted Date Comments Benadryl Allergy Decongestant Swelling 12/03/2015 Taken for an allergic reaction that got worse after taking benadryl. ? Reaction to benadryl or continuation of original reaction? Medications SUMAtriptan (IMITREX) 25 MG tablet Take 25 mg by mouth every 2 (two) hours as needed for migraine. Active topiramate (TOPAMAX) 200 MG tabletIndicatio ns:200 mg at night and 100 mg during the day Take 200 mg by mouth 2 (two) times a day. Indications: 200 mg at night and 100 mg during the day Active omeprazole (PRILOSEC) 20 MG capsule Take 20 mg by mouth 2 (two) times a day. Active ZOLMITRIPTAN (ZOMIG ORAL) Take by mouth. Active prochlorperazin e (COMPAZINE) 10 MG tablet Take 1 tablet (10 mg total) by mouth every 6 (six) hours as needed (nausea). 10 tablet 08/21/2017 Active ibuprofen (ADVIL,MOTRIN) 200 MG tablet Take 2 tablets (400 mg total) by mouth every 8 (eight) hours as needed for pain (specific location in comments). 08/21/2017 Active acetaminophen (TYLENOL) 500 MG tablet Take 2 tablets (1,000 mg total) by mouth every 8 (eight) hours as needed for pain (specific location in comments). 0 08/21/2017 Active Active Problems Problem Noted Date Diagnosed Date Achalasia 08/20/2017 Morbid obesity 06/16/2017 Achalasia of esophagus 11/12/2016 Dysphagia 12/03/2015 Family History Medical History Relation Comments Celiac disease Neg Hx Cirrhosis Neg Hx Colon cancer Neg Hx Colon polyps Neg Hx Crohn's disease Neg Hx Cystic fibrosis Neg Hx Hemochromatosis Neg Hx Hepatitis B Neg Hx Inflammatory bowel disease Neg Hx Irritable bowel syndrome Neg Hx Liver cancer Neg Hx Liver disease Neg Hx Rectal cancer Neg Hx Stomach cancer Neg Hx Ulcerative colitis Neg Hx Ventura's disease Neg Hx Social History Tobacco Use Types Packs/Day Years Used Date Smoking Tobacco: Never Smokeless Tobacco: Never Tobacco Cessation:Counseling Given: No Alcohol Use Standard Drinks/Week Comments No 0 (1 standard drink = 0.6 oz pur e alcohol) Education Answer Date Recorded Are you interested in more education? Not on jose e 12/26/2022 Are you concerned about learning? Not on file 12/26/2022 No 12/26/2022 No 12/26/2022 Digital Access Answer Date Recorded No 01/26/2023 No 01/26/2023 No 01/26/2023 Reliable internet access at home? Not on file 01/26/2023 Device with a working camera? Not on file Comments Unknown Sex and Gender Information Value Date Recorded Sex Assigned at Not on file Legal Sex Female 5:09 PM EDT Gender Identity Not on file Sexual Orientation Not on file Last Filed Vital Signs Vital Sign Reading Time Taken Comments Blood Pressure 144/82 08/21/2017 8:45 AM EST Pulse 98 08/20/2017 9:30 PM EST Temperature 36.7 C (98.1 F) 08/21/2017 5:50 AM EST Respiratory Rate 16 08/21/2017 5:50 AM EST Oxygen Saturation 98% 08/21/2017 8:45 AM EST Inhaled Oxygen Concentration - - Weight 112.9 kg (249 lb) 08/12/2017 2:48 PM EST Height 152.4 cm (5') 08/12/2017 2:48 PM EST Body Mass Index 48.63 08/12/2017 2:48 PM EST Plan of Treatment Health Maintenance Due Date Last Done Comments Adult Td,Tdap Booster 1978 LIPID PANEL 1978 DEPRESSION SCREENING 1990 HEPATITIS C SCREENING 1996 HIV ONE-TIME SCREENING (18-6 5 YEARS) 1996 PAP SMEAR 1999 MAMMOGRAM 2018 COLOGUARD 2023 COLONOSCOPY 2023 COLORECTAL CANCER SCREENING 2023 FIT TEST 2023 FOBT 2023 SIGMOIDOSCOPY 2023 VIRTUAL COLONOSCOPY 2023 INFLUENZA VACCINE (#1) 2025 09/30/2017 COVID-19 VACCINE (1 - 2023-2 5 season) 2025 SMOKING STATUS SCREENING (On ce After 26 Yrs) Completed 08/12/2017 PNEUMOCOCCAL VACCINES (0-49 years) Aged Out 2017 No longer eligible based on patient's age to complete this topic HEPATITIS A VACCINES Aged Out No long er eligible based on patient's age to complete this topic HIB VACCINES Aged Out No longer eligi ble based on patient's age to complete this topic MENINGOCOCCAL VACCINES (ACWY) Aged Out No longer eligible based on patient's age to complete this topic MENINGOCOCCAL VACCINES (B) Aged Out N o longer eligible based on patient's age to complete this topic Medical Devices Implanted Type Area Physician Compensation Analyst Device Identifier Shelf Expiration Date Model / Serial / Lot Clip Internal [id number] Hemo Git Instinct Bx/10ea - [id number] Implanted:Qty: 4 on 08/20/2017 by Darshan Kent MD at [facility] [employer] 01/29/2020 [id number] / / [id number] Clip Internal [id number] Hemo Git Instinct Bx/10ea - [id number] Implanted:Qty: 4 on 08/20/2017 by Darshan Kent MD at [facility] [employer] 01/28/2020 [id number] / / [id number] Insurance [employer] NON NSPG PCP [employer] [place] [address] [place] [address] NON NSPG PCP S[employer] NON NSPG PCP S[employer] NON NSPG PCP [employer] NON NSPG PCP [employer] NON NSPG PCP S[employer] NON NSPG PCP [employer] NON NSPG PCP [employer] NON NSPG PCP [employer] Advance Directives For more information, please contact: [phone] (9AM - 5PM [place], Thursday-Thursday) * Full Code (Presumed) (Latest Code Status on File) Date Activated Date Inactivated Comments 08/20/2017 7:38 PM 08/21/2017 12:50 PM Care Teams Business Objects Consultant Relationship Specialty Start Date End Date Stephen Whalen DO [address] [place] [id number] PCP - General Internal Medicine 08/13/17 Diallo Chavez MD [address] [place] [address] [place] [id number] Gastroenterology 04/23/18 Additional Source Comments The information contained in this document represents components of the legal health record. It is not the complete legal health record.[facility]
--- OUTSIDE RECORDS SUMMARY | 2025-05-29 12:48 | XMS_ITS | Patient Health Record ---
Author Organization [facility] Address [address] [place] [id number] Care Team Providers Care Aircraft Log Clerk Name Role Phone Erick Stapleton N.P. Primary Care Provider Diallo Gray Unavailable [phone] Allergies Allergen (clinical drug ingredient) Drug/Non Drug Allergy documented on EMR Reaction Allergy Type Onset Date Status diphenhydramine benadryl (uncoded) Unknown Allergy Active Reason For Referral No Information Medications Medication SIG (Take, Route, Frequency, Duration) Notes Start Date End Date Status Hyoscyamine Sulfate 0.125 MG 1 or 2 tablet on the tongue and allow to dissolve Orally Before every meal three times a day to prevent abdominal cramps and diarrhea for 30 days 04/30/2022 Active Omeprazole 20 MG Open 1 capsule and put in applesauce Orally Once a day for 30 day(s) 12/06/2020 Not-Taking Hyoscyamine Sulfate 0.125 MG 1-2 Sublingual every 4 hours as needed for abdominal pain/cramps for 30 days IBS 04/10/2016 Active Iron 18 MG/15ML 15 mL mixed with water or juice Orally Once a day Active Prevacid SoluTab 30 MG 1 tablet dissolved in mouth Orally Once a day for 30 day(s) 12/04/2020 Not-Taking Vitamin B-12 3000 MCG/ML as directed Sublingual Active Omeprazole 2 MG/ML 10 ml Orally Once a day for 30 day(s) 11/27/2020 Not-Taking Omeprazole 20 MG 1 Orally Every morning for 30 day(s) 09/08/2023 Active Imodium A-D 2 MG 1 or 2 tablets Orall y Take before each meal three times a day to prevent abdominal cramps and diarrhea for 30 days 04/30/2022 Active Promethazine HCl Act juventino Naratriptan HCl Migraines Acti ve Ketorolac Tromethamine 30 MG/ML (IM) as directed Intramuscular PRN pain Fibromyalgia Active Folic Acid 20 MG as directed Orally Active Immunizations Vaccine Route Administration Date Status Comme nts Influenza Unknown 04/30/2022 Administered Influenza Unknown 06/22/2024 Administered Influenza Unknown 05/30/2020 Refused Problems Problem Type SNOMED Code ICD Code Onset Dates Problem Status W/U Status Risk Notes Problem 435088363 Abdominal bloating (R14.0) Active confirmed Problem 295169713 Generalized abdominal pain (R10.84) Active confirmed Problem Dysphagia (19696686) Dysphagia (R13.10) Active confirmed Problem Irritable bowel syndrome (49338192) IBS (irritable bowel syndrome) (K58.9) Active confirmed Problem Iron deficiency anemia (00048020) Iron deficiency anemia (D50.9) Active confirmed Problem 38152389 Achalasia (K22.0) Active confirmed Problem Gastroesophageal reflux disease (977911547) GERD (gastroesophag eal reflux disease) (K21.9) Active confirmed Vital Signs Temperature 97.8 degrees Fahrenheit 04/26/2025 Blood pressure diastolic 01 mm Hg 04/26/2025 Height 60.25 in 04/26/2025 Blood pressure systolic 001 mm Hg 04/26/2025 Weight 241.8 lbs 04/26/2025 BMI 46.83 kg/m2 04/26/2025 Procedures Procedure Date Ordered Date Performed Result Body Sit e UPPER GI ENDOSCOPY 04/26/2025 N/A COLONOSCOPY 04/26/2025 N/A Encounters Encounter Location Date Provider [facility] [address] [place] [address] 04/26/2025 Diallo Chavez Achalasia K22.0 ; GERD (gastroesophageal reflux disease) K21.9 ; Dysphagia R13.10 ; IBS (irritable bowel syndrome) K58.9 and Iron deficiency anemia D50.9 Assessments Encounter Date Diagnosis (ICD Code) Assessment Notes Treatment Notes Treatment Clinical Notes Section Notes 04/26/2025 Achalasia (ICD-10 - K22.0) Overall, Sherie appears well and quite stable from a GI standpoint. She is having her chronic issues with her dysphagia from the achalasia and loose stools in relation to both irritable bowel syndrome and most likely in relation to her liquid diet as well. She is not having any particularly worrisome symptoms. Her iron deficiency anemia should be assessed to rule out any GI source of chronic blood loss and/or possible iron malabsorption from something such as celiac disease. As such, I did recommend both upper endoscopy and colonoscopy for evaluation. She may very well have a component of some esophagitis from stasis in relation to the achalasia. Full consent has been obtained from her for both procedures, including risks of bleeding and perforation. The procedures will be done with monitored anesthesia care. We did review the importance of the 2 procedures in regard to prevention of something such as colorectal cancer and/or early detection of GI neoplasm. It will also be important to do the colonoscopy for screening purposes given her age over 45 and her never having had a colonoscopy before. In the meantime she will continue to follow-up for iron infusions with Dr. Alston. Sherie was comfortable with this plan. Thank you again for allowing me to participate in Sherie's care. I shall continue to keep you advised of her progress.. 04/26/2025 GERD (gastroesophag eal reflux disease) (ICD-10 - K21.9) Overall, Sherie appears well and quite stable from a GI standpoint. She is having her chronic issues with her dysphagia from the achalasia and loose stools in relation to both irritable bowel syndrome and most likely in relation to her liquid diet as well. She is not having any particularly worrisome symptoms. Her iron deficiency anemia should be assessed to rule out any GI source of chronic blood loss and/or possible iron malabsorption from something such as celiac disease. As such, I did recommend both upper endoscopy and colonoscopy for evaluation. She may very well have a component of some esophagitis from stasis in relation to the achalasia. Full consent has been obtained from her for both procedures, including risks of bleeding and perforation. The procedures will be done with monitored anesthesia care. We did review the importance of the 2 procedures in regard to prevention of something such as colorectal cancer and/or early detection of GI neoplasm. It will also be important to do the colonoscopy for screening purposes given her age over 43 and her never having had a colonoscopy before. In the meantime she will continue to follow-up for iron infusions with Dr. Alston. Sherie was comfortable with this plan. Thank you again for allowing me to participate in Sherie's care. I shall continue to keep you advised of her progress.. 04/26/2025 Dysphagia (ICD-10 - R13.10) Overall, Sherie appears well and quite stable from a GI standpoint. She is having her chronic issues with her dysphagia from the achalasia and loose stools in relation to both irritable bowel syndrome and most likely in relation to her liquid diet as well. She is not having any particularly worrisome symptoms. Her iron deficiency anemia should be assessed to rule out any GI source of chronic blood loss and/or possible iron malabsorption from something such as celiac disease. As such, I did recommend both upper endoscopy and colonoscopy for evaluation. She may very well have a component of some esophagitis from stasis in relation to the achalasia. Full consent has been obtained from her for both procedures, including risks of bleeding and perforation. The procedures will be done with monitored anesthesia care. We did review the importance of the 2 procedures in regard to prevention of something such as colorectal cancer and/or early detection of GI neoplasm. It will also be important to do the colonoscopy for screening purposes given her age over 43 and her never having had a colonoscopy before. In the meantime she will continue to follow-up for iron infusions with Dr. Alston. Sherie was comfortable with this plan. Thank you again for allowing me to participate in Sherie's care. I shall continue to keep you advised of her progress.. 04/26/2025 IBS (irritable bowel syndrome) (ICD-10 - K58.9) Overall, Sherie appears well and quite stable from a GI standpoint. She is having her chronic issues with her dysphagia from the achalasia and loose stools in relation to both irritable bowel syndrome and most likely in relation to her liquid diet as well. She is not having any particularly worrisome symptoms. Her iron deficiency anemia should be assessed to rule out any GI source of chronic blood loss and/or possible iron malabsorption from something such as celiac disease. As such, I did recommend both upper endoscopy and colonoscopy for evaluation. She may very well have a component of some esophagitis from stasis in relation to the achalasia. Full consent has been obtained from her for both procedures, including risks of bleeding and perforation. The procedures will be done with monitored anesthesia care. We did review the importance of the 2 procedures in regard to prevention of something such as colorectal cancer and/or early detection of GI neoplasm. It will also be important to do the colonoscopy for screening purposes given her age over 43 and her never having had a colonoscopy before. In the meantime she will continue to follow-up for iron infusions with Dr. Alston. Sherie was comfortable with this plan. Thank you again for allowing me to participate in Sherie's care. I shall continue to keep you advised of her progress.. 04/26/2025 Iron deficiency anemia (ICD-10 - D50.9) Overall, Sherie appears well and quite stable from a GI standpoint. She is having her chronic issues with her dysphagia from the achalasia and loose stools in relation to both irritable bowel syndrome and most likely in relation to her liquid diet as well. She is not having any particularly worrisome symptoms. Her iron deficiency anemia should be assessed to rule out any GI source of chronic blood loss and/or possible iron malabsorption from something such as celiac disease. As such, I did recommend both upper endoscopy and colonoscopy for evaluation. She may very well have a component of some esophagitis from stasis in relation to the achalasia. Full consent has been obtained from her for both procedures, including risks of bleeding and perforation. The procedures will be done with monitored anesthesia care. We did review the importance of the 2 procedures in regard to prevention of something such as colorectal cancer and/or early detection of GI neoplasm. It will also be important to do the colonoscopy for screening purposes given her age over 43 and her never having had a colonoscopy before. In the meantime she will continue to follow-up for iron infusions with Dr. Alston. Sherie was comfortable with this plan. Thank you again for allowing me to participate in Sherie's care. I shall continue to keep you advised of her progress.. Plan Of Treatment Pending Test Test Name Order Date UPPER GI ENDOSCOPY 04/26/2025 COLONOSCOPY 04/26/2025 Next Appt Details Provider Name:Diallo Connolly Scott , 07/24/2025 09:30:00 AM, [address] [facility] , [place], [place], [id number], Insurance Providers Payer Name Payer Address Payer Phone Subscriber Number Group Number Insured Name Patient Relationship to Insured Coverage Start Date Coverage End Date [facility] [address] [place] [address] [phone] [id number] PERNELL EBER SHERIE Self - patient is the insured Medical (General) History Medical History History ICD Code Achalasia treated with a loli gical Heller myotomy in [place] in 2003- last EGD was in 08/2010-no retained food nor obstruction- saw Dr. Rekha Martinez from Thoracic surgery in 2010-did not feel that surgery was needed at that time- saw Dr. Katz at [facility] in 03/2014-had a Barium swallow and esophageal motility study- no surgery recommended. She did followup with Dr. Katz and Dr. Lambert at [facility] in 2014 but did not have any surgery nor POEM procedure done. We are trying to get her an appointment to see Dr. Qiu at [facility] for spring. She did see Dr. Qiu in 11/2015- had a Barium swallow and CT scan- he needs to do an EGD and then decide about any possible treatment for the Achalasia. She has been followed by Dr. Qiu, Dr. Mccray(Lapaoscopic surgeon) and Dr. Kent(Bariatric surgeon) at [facility] [place] there in 07/2017 for F/U and to try to set up a POEM procedure. She reports an attempted EGD with POEM by Dr. Mccray in spring- -they were unable to do the POEM due to difficulty with the esophageal anatomy. Dr. Mccray has recommended an esophagectomy at some point. After 2018 no other intervention due to problems with her insurance. She has been seeing Dr. Blevins at [facility] since 2019 Headaches Denies CA,DM,CVA,Lung disease,renal dise ase Vitamin D deficiency Fibromyalgia/Hypermobility of the bones Regarding her achalasia, she has most recently been followed by Dr. Blevins at [facility] since May of 2020- she has undergone an upper endoscopy with a 20 mm Savory dilation by Dr. Blevins, as well as a barium swallow- - the main issue with Sherie's swallowing seems to be related to the poorly functioning and tortuous lower esophagus, as opposed to the lower esophageal sphincter- Dr. Blevins seems to think that the only [...] based on Dr. Blevins's office notes IBS Iron deficiency anemia noted in 2024 and followed with . She has received IV iron infusions. Surgical History Surgery Date(Month/Year) Abdominoplasty Appendectomy 02/05/2015- Dr. Aguilar at [facility] in 10/[address] Barnes Heller myotomy as above- 2004 in [place]
[2025-07-10 10:07] VITALS: BP 123/88; PULSE 77; RESP 16; O2SAT 98; BMI 47.6
--- NOTE | 2025-07-10 10:33 | P.CONAN_ITS ---
Documented by User: Jeanette Franklin NP 07/18/25 14:07 HPI - Anesthesia Eval Consult details Narrative: 45yo F for Upper Endoscopy and Colonoscopy, 07/24/25 BMI 47 No recent illness No CP/SOB - does housework, groceries, laundry, etc without cardiopulmonary limitations Ketorolac injections for migraines/fibromyalgia - instructions to hold after 06/30 Anemia: Followed by [facility]. B12 injection and iron infusions monthly PMFSH Active Problems Active Problems: All Active Problems Screen for sexually transmitted diseases (Acute) Chlamydia infection (Acute) Screening for malignant neoplasm of cervix (Acute) Breast cancer screening (Acute) Morbid obesity with BMI of 45.0-49.9, adult (Acute) BMI 45.0-49.9, adult (Acute) Pain of left heel (Acute) Leg swelling (Acute) Anemia (Acute) UTI (urinary tract infection) (Acute) Encounter for screening mammogram for malignant neoplasm of breast (Acute) Encounter for annual routine gynecological examination (Acute) Onychomycosis (Acute) Seasonal allergies (Acute) Crepitus of both knee joints (Acute) Annual physical exam (Acute) Normal Pap smear (Acute) Hypermobile joint syndrome of multiple sites (Acute) Obese (Acute) Hyperlipemia (Acute) Migraine headache (Acute) Achalasia (Acute) Fibromyalgia (Acute) Past Medical History Medical History Anemia Environmental allergies Seasonal allergies Dysphagia GERD (gastroesophageal reflux disease) Diarrhea Irritable bowel syndrome (IBS) Iron deficiency anemia Annual physical exam Normal Pap smear Hypermobile joint syndrome of multiple sites Obese Hyperlipemia Fibromyalgia Lumbar degenerative disc disease Achalasia Carpal tunnel syndrome Migraine headache Family History Family History Father No problems noted. Mother No problems noted. 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 If so, by whom?: No Are you DNR?: No Advance Directives: No Advance Directives Information Provided: Yes Advance Directives on File: No FDLMP: 06/23/2025 : No service: No Current occupational status: employed Cognitive needs: No Hearing needs: No Vision needs: Yes (Glasses) Meds Allergies Allergy/AdvReac Type Severity Reaction Status Date / Time Benadryl Allergy Severe angioedema, Verified 07/18/25 13:53 facial swelling, facial itching hard water and soap Allergy Severe rash Uncoded 07/10/25 10:24 Home Medications ?Medication ?Instructions ?Recorded ?Confirmed ?Last Taken ?Type syringe with needle 3 mL 25 gauge 12/15/24 06/27/25 U nknown History x 1 Exam Height,Weight and Vital Signs: Height 5 ft Weight 110.677 kg Last Vital Signs Pulse 77 07/10/25 10:07 Resp 16 07/10/25 10:07 BP 123/88 07/10/25 10:07 Pulse Ox 98 07/10/25 10:07 O2 Del Method Room Air 07/10/25 10:07 Airway Mallampati Class: I TM Dist: >3cm Neck ROM: Full Loose/Missing/Broken Teeth: Yes Heart: RRR Lungs: CTAB Assessment and Plan Assessment Anesthesia Assessment: Anesthesia Plan Discussed and PAT Visit Final Anesthetic Review Family History of Problems with Anesthesia: No History of Problems with Anesthesia: No Documented by User: Wander Beltran MD 07/24/25 08:12 [facility] Past Medical History Medical History Anemia Environmental allergies Seasonal allergies Dysphagia GERD (gastroesophageal reflux disease) Diarrhea Irritable bowel syndrome (IBS) Iron deficiency anemia Annual physical exam Normal Pap smear Hypermobile joint syndrome of multiple sites Obese Hyperlipemia Fibromyalgia Lumbar degenerative disc disease Achalasia Carpal tunnel syndrome Migraine headache Cognitive capacity: normal Functional capacity: independent ambulation Family History Family History Father No problems noted. Mother No problems noted. 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 If so, by whom?: No Are you DNR?: No Advance Directives: No Advance Directives Information Provided: Yes Advance Directives on File: No FDLMP: 06/23/2025 : No service: No Current occupational status: employed Cognitive needs: No Hearing needs: No Vision needs: Yes (Glasses) Meds Allergies Allergy/AdvReac Type Severity Reaction Status Date / Time Benadryl Allergy Severe angioedema, Verified 07/18/25 13:53 facial swelling, facial itching hard water and soap Allergy Severe rash Uncoded 07/10/25 10:24 Home Medications ?Medication ?Instructions ?Recorded ?Confirmed ?Last Taken ?Type syringe with needle 3 mL 25 gauge 12/15/24 06/27/25 U nknown History x 1 Exam Exam Date and Time: 07/24/25 Assessment and Plan Final Anesthetic Review NPO: Yes ASA Class: II Final Preanesthetic Review: No Changes in Pt Med Stat, Meds/Allgs Chart Reviewed, Consent Obtained/Reviewed and Anes Risks/Benef Reviewed Patient Risk: Low Procedure Risk: Low Anesthetic Plan Anesthetic Plan: MAC: Disposition: Standard PACU
[2025-07-24 07:33] VITALS: BMI 47.3
[2025-07-24 07:39] LABS: UPreg QC Valid YES
[2025-07-24 07:47] VITALS: BP 116/71; PULSE 75; RESP 16; TEMP 36.2; O2SAT 97
[2025-07-24] MEDS: Lactated Ringers 1,000 ML 100 ML IVCONT (07:56)
--- NOTE | 2025-07-24 08:13 | P.CONAN_ITS ---
[facility] Active Problems Active Problems: All Active Problems (Updated 07/13/25 @ 18:56 by ALICIA Frazier-Kush) Preoperative clearance (Acute) Screen for sexually transmitted diseases (Acute) Chlamydia infection (Acute) Screening for malignant neoplasm of cervix (Acute) Breast cancer screening (Acute) Morbid obesity with BMI of 45.0-49.9, adult (Acute) BMI 45.0-49.9, adult (Acute) Pain of left heel (Acute) Leg swelling (Acute) Anemia (Acute) UTI (urinary tract infection) (Acute) Encounter for screening mammogram for malignant neoplasm of breast (Acute) Encounter for annual routine gynecological examination (Acute) Onychomycosis (Acute) Seasonal allergies (Acute) Crepitus of both knee joints (Acute) Annual physical exam (Acute) Normal Pap smear (Acute) Hypermobile joint syndrome of multiple sites (Acute) Obese (Acute) Hyperlipemia (Acute) Migraine headache (Acute) Achalasia (Acute) Fibromyalgia (Acute) Past Medical History Medical History Anemia Environmental allergies Seasonal allergies Dysphagia GERD (gastroesophageal reflux disease) Diarrhea Irritable bowel syndrome (IBS) Iron deficiency anemia Annual physical exam Normal Pap smear Hypermobile joint syndrome of multiple sites Obese Hyperlipemia Fibromyalgia Lumbar degenerative disc disease Achalasia Carpal tunnel syndrome Migraine headache Functional capacity: independent ambulation Family History Family History Father No problems noted. Mother No problems noted. 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 If so, by whom?: No Are you DNR?: No Advance Directives: No Advance Directives Information Provided: Yes Advance Directives on File: No FDLMP: 06/23/2025 : No service: No Current occupational status: employed Cognitive needs: No Hearing needs: No Vision needs: Yes (Glasses) Meds Allergies Allergy/AdvReac Type Severity Reaction Status Date / Time Benadryl Allergy Severe angioedema, Verified 07/18/25 13:53 facial swelling, facial itching hard water and soap Allergy Severe rash Uncoded 07/10/25 10:24 Active Medications: Current Medications Lactated Ringer's (Lr) 1,000 mls @ 100 mls/hr IVCONT .Q10H YENY Last Admin: 07/24/25 07:56 Dose: 100 mls/hr Sodium Biphosphate/Sodium Phosphate (Sodium Phosphate,Pettis-Dibasic 133 Ml Enema) 133 ml NC ONCE PRN PRN Reason: Poor Colonoscopy Prep Results Home Medications ?Medication ?Instructions ?Recorded ?Confirmed ?Last Taken ?Type syringe with needle 3 mL 25 gauge 12/15/24 06/27/25 U nknown History x 1 Exam Height,Weight and Vital Signs: Height 5 ft Weight 109.8 kg Last Vital Signs Temp 97.1 F 07/24/25 07:47 Pulse 75 07/24/25 07:47 Resp 16 07/24/25 07:47 BP 116/71 07/24/25 07:47 Pulse Ox 97 07/24/25 07:47 O2 Del Method Room Air 07/24/25 07:47 Pertinent Lab Results Pertinent Lab Results: Laboratory Tests 07/24/25 07:24 Urine Test NEGATIVE Assessment and Plan Final Anesthetic Review Family History of Problems with Anesthesia: No History of Problems with Anesthesia: No NPO: Yes ASA Class: II Final Preanesthetic Review: No Changes in Pt Med Stat, Meds/Allgs Chart Reviewed, Consent Obtained/Reviewed and Anes Risks/Benef Reviewed Patient Risk: Low Procedure Risk: Low Anesthetic Plan Anesthetic Plan: MAC: and Agree w/ Assess. and Plan Disposition: Standard PACU
[2025-07-24 09:48] VITALS: BP 110/55; PULSE 80; RESP 16; TEMP 36.7; O2SAT 98
--- NOTE | 2025-07-24 09:53 | P.BOP_ITS ---
Brief Operative Note Date of Service: 07/24/25 Pre-op diagnosis: Anemia, GERD, Achalasia Post-op diagnosis: other (Gastritis, Hiatal hernia, Internal hemorrhoids) Procedure: EGD with biopsies, Colonoscopy to the cecum and TI Surgeon: Diallo Chavez MD Anesthesia: MAC Was an Barrel Assembler used for this Procedure?: No Estimated blood loss (mL): 2.0 Pathology: other (A. 2nd and 3rd portions of duodenum B. Gastric antrum) Condition: stable Disposition: PACU
[2025-07-24 10:00] VITALS: BP 118/54; PULSE 79; RESP 16; TEMP 36.7; O2SAT 98
[2025-07-24 10:10] VITALS: BP 102/70; PULSE 70; RESP 16; TEMP 36.4; O2SAT 98
--- NOTE | 2025-07-24 20:41 | OP_ITS ---
DATE OF SERVICE: 07/24/2025 SURGEON: Diallo Chavez MD INDICATIONS: The patient presents for evaluation of underlying history of achalasia, reflux, and iron deficiency anemia. Full consent has been obtained from her for this, including risks of bleeding and perforation. PREOPERATIVE DIAGNOSIS: POSTOPERATIVE DIAGNOSIS: PROCEDURE PERFORMED: Esophagogastroduodenoscopy with biopsies and colonoscopy to the cecum and terminal ileum. ESTIMATED BLOOD LOSS: COMPLICATIONS: ANESTHESIA: Monitored anesthesia care. ASSISTANTS: SPECIMENS: PREOPERATIVE DIAGNOSES: Gastroesophageal reflux, achalasia, and iron deficiency anemia. POSTOPERATIVE DIAGNOSES: Gastroesophageal reflux, achalasia, and iron deficiency anemia, small hiatal hernia, mild gastritis, internal hemorrhoids. DESCRIPTION OF PROCEDURE: The patient was placed in the left lateral decubitus position. The Olympus video gastroscope was passed in the posterior oropharynx and upper esophagus under direct vision. The scope was advanced slowly to the distal esophagus. The gastroesophageal junction appeared at 35 cm. The esophagus appeared somewhat tortuous and mildly dilated with diminished peristalsis. There was no sign of any retained food or liquid in the esophagus. There was no esophagitis or any gross evidence of Ch esophagus. There was a small hiatal hernia. The scope easily entered the stomach and was advanced to the pylorus. The duodenum was cannulated to the descending portion. The duodenum including the bulb appeared normal without mass or ulceration. Biopsies were obtained from the 2nd and 3rd portions of duodenum. The scope was withdrawn back in the stomach. The gastric antrum had some mild changes of gastritis with overlying erythema and edema, but no erosions nor ulceration. There was good peristalsis. Biopsies were obtained from the gastric antrum. The scope was retroflexed visualizing the proximal stomach carefully, which appeared normal, without any sign of mass or ulceration. I did not visualize any obvious fundoplication. The scope was straightened and withdrawn back to the esophagus. The esophageal mucosa appeared normal. The scope was withdrawn from the patient. She was turned around for the colonoscopy. The digital rectal exam revealed no abnormalities. The Olympus video pediatric colonoscope was entered into the rectum and advanced easily to the cecum. Once in the cecum, I did identify normal-appearing cecal pouch with appendiceal orifice and a normal-appearing ileocecal valve. The terminal ileum was cannulated and appeared normal. The scope was withdrawn back in the colon. The entire cecum and ileocecal valve appeared normal. The scope was slowly withdrawn assessing all mucosal surfaces carefully. Preparation was excellent. I did not visualize any sign of polyps, colitis, nor angiodysplasia. In the rectum, scope was retroflexed visualizing internal hemorrhoids, but no other pathology. The rectal mucosa appeared normal. The scope was straightened and withdrawn from the patient. She tolerated the procedures well and was returned to the recovery area in stable condition. IMPRESSION: 1. Small hiatal hernia, history of achalasia. 2. Gastritis. 3. Rule out celiac disease. 4. Internal hemorrhoids. PLAN: The results of the biopsies will be checked. I would recommend a repeat colonoscopy in 10 years for further screening. She will continue to follow up with Dr. Alston in regard to her anemia. She will continue her omeprazole for her reflux. She will be seen in 1 year for a followup visit, and I would recommend a repeat upper endoscopy in 3 years as well given the underlying achalasia. She will otherwise see me on a p.r.n. basis. MD JUAN Vaughn/MERLY / [id number]
== END 2025-07-24 10:26 | disposition home or self-care (01) ==
PROVIDERS: Nurse Practitioner; Visit Provider Internal Medicine
PROC: (CPT 45378; principal; 2025-07-24 08:30)
DX: Z12.11 Encounter for screening for malignant neoplasm of colon (principal); K22.0 Achalasia of cardia; K21.9 Gastro-esophageal reflux disease without esophagitis; D50.9 Iron deficiency anemia, unspecified; R13.10 Dysphagia, unspecified; K58.9 Irritable bowel syndrome, unspecified; K64.8 Other hemorrhoids; K44.9 Diaphragmatic hernia without obstruction or gangrene; K29.70 Gastritis, unspecified, without bleeding
CPT/HCPCS: 45378; 43239; 81025; 88305; 88342; J2003; J2704; J3010